=== PATIENT | female | born 1945 | race Caucasian/White ===

== ENCOUNTER 2017-06-19 21:03 | Inpatient (IN) | END 2017-06-23 17:37 | disposition home or self-care (01) | DRG 872 ==

== ENCOUNTER 2017-10-08 05:36 | Emergency (ER) | END 2017-10-08 06:43 | disposition home or self-care (01) ==

== ENCOUNTER 2018-02-16 14:14 | Inpatient (IN) | END 2018-02-20 17:51 | disposition home or self-care (01) | DRG 291 ==

== ENCOUNTER 2018-09-30 13:21 | Observation (INO) | payer MEDICARE, OTHER ==
[~2018-09-30] VITALS: Ht 157.5 cm; Wt 77.7 kg
[~2018-09-30 13:21] MED LIST: AMLO-147 PO; ATOR40TA68 PO; BENA40TA56 PO; CLOT30CR24 TOP; DOCU-144 PO; FER325 PO; FOLI-49 PO; FURO20TA3 PO; HYDR25TA6 PO; LABE100T39 PO; LEVO25TA6 PO; MET25 PO; METF500T24 PO; PANT40TA3 PO; SIMV40TA2 PO; TYL500 PO
--- NOTE | 2018-09-30 17:43 | ERD ---
ER Documentation Chief Complaint Chief Complaint sob and anemia x 3 days HPI The patient is a 73-year-old female, presenting to the ER because of dyspnea on exertion for the last week, worse today, complains of orthopnea, paroxysmal nocturnal dyspnea, bilateral leg edema, had similar symptoms previously, denies chest pain, abdominal pain, vomiting, dysuria, diarrhea. She does not smoke nor drink Past medical history: Hypertension, dyslipidemia, hypothyroidism, diabetes mellitus, history of CHF Past surgical history: Hysterectomy ROS All systems reviewed and are negative except as per history of present illness. Medications Home Meds Reported Medications Ascorbic Acid* (Vitamin C* Chew) 125 Mg Tab.chew, 250 MG PO BID, TAB.CHEW 09/30/18 Methotrexate* (Methotrexate*) 2.5 Mg Tab, 15 MG PO Q SUN, TAB 09/30/18 Folic Acid* (Folic Acid*) 1 Mg Tablet, 1 MG PO DAILY, TAB 09/30/18 Ferrous Sulfate* (Ferrous Sulfate*) 325 Mg Tabec, 325 MG PO DAILY, TAB 09/30/18 Carvedilol* (Carvedilol*) 6.25 Mg Tablet, 6.25 MG PO BID, #60 TAB 09/30/18 Hydralazine Hcl* (Hydralazine Hcl*) 25 Mg Tab, 25 MG PO BID, #60 TAB 09/30/18 Atorvastatin Calcium* (Atorvastatin Calcium*) 20 Mg Tablet, 20 MG PO QHS, #30 TAB 09/30/18 Amlodipine Besylate* (Amlodipine Besylate*) 10 Mg Tablet, 10 MG PO DAILY, #30 TAB 09/30/18 Levothyroxine Sodium* (Levothyroxine Sodium*) 25 Mcg Tablet, 25 MCG PO BEFORE BREAKFAST, #30 TAB 09/30/18 Cyanocobalamin (Vitamin B-12) (Vitamin B-12) 1,000 Mcg Capsule, 1000 MCG PO DAILY, CAP 09/30/18 Discontinued Reported Medications Labetalol Hcl (Labetalol Hcl) 100 Mg Tab, 100 MG PO BID, TAB 02/16/18 Atorvastatin* (Atorvastatin*) 40 Mg Tablet, 20 MG PO QHS, #30 TAB 02/16/18 Acetaminophen* (Tylenol*) 500 Mg Tab, 500 MG PO NEEDED PRN for MILD PAIN LEVEL 1-3, TAB 06/19/17 Levothyroxine Sodium* (Levothyroxine Sodium*) 25 Mcg Tablet, 25 MCG PO BEFORE BREAKFAST, #30 TAB 06/19/17 Folic Acid* (Folic Acid*) 1 Mg Tablet, 1 MG PO DAILY, TAB 06/19/17 Simvastatin* (Zocor*) 40 Mg Tablet, 40 MG PO QHS, #30 TAB 06/19/17 Methotrexate* (Methotrexate*) 2.5 Mg Tab, 2.5 MG PO Q7D, TAB TAKE 7TAB-Q7D FOR 1 MONTH,THEN 6TAB-Q7D AND IF JOINT PAIN DONT GO BACK TO TAKE 8TAB-Q7D 06/19/17 Metformin Hcl* (Metformin Hcl*) 500 Mg Tablet, 500 MG PO WITH BREAKFAST DINNE, #60 TAB 06/19/17 Hydrochlorothiazide* (Hydrochlorothiazide*) 25 Mg Tab, 25 MG PO DAILY, #30 TAB 06/19/17 Discontinued Scripts Furosemide* (Furosemide*) 20 Mg Tablet, 20 MG PO Q48H, #60 TAB Prov:POLINA DICKINSON MD 02/20/18 Ferrous Sulfate* (Ferrous Sulfate*) 325 Mg Tabec, 325 MG PO DAILY, #90 TAB 3 Refills Prov:POLINA DICKINSON MD 02/20/18 Clotrimazole* (Clotrimazole* AF) 1% - 30 Gm Cream.gm., 1 APPLIC TOP BID for 7 Days, TUB Prov:TOYA SHAH PA-C 10/08/17 Docusate Sodium* (Colace*) 100 Mg Capsule, 100 MG PO BID PRN for CONSTIPATION, #60 CAP Prov:RUPERTO TUCKER 06/23/17 Pantoprazole* (Protonix*) 40 Mg Tablet.dr, 40 MG PO DAILY, #30 TAB Prov:REGRUPERTO RANDHAWA 06/23/17 Benazepril Hcl* (Benazepril Hcl*) 40 Mg Tablet, 40 MG PO DAILY, #30 TAB Prov:REGRUPERTO RANDHAWA 06/23/17 Amlodipine Besylate* (Amlodipine Besylate*) 10 Mg Tablet, 10 MG PO DAILY, #30 TAB Prov:RUPERTO TUCKER 06/23/17 Allergies Allergies: Coded Allergies: No Known Allergy (Unverified , 09/30/18) PMhx/Soc History of Surgery: Yes (hysterectomy 30+ years ago) Anesthesia Reaction: No Hx Neurological Disorder: No Hx Respiratory Disorders: No Hx Cardiac Disorders: Yes (HTN) Hx Psychiatric Problems: No Hx Miscellaneous Medical Probl: No Hx Alcohol Use: No Hx Substance Use: No Hx Tobacco Use: No Physical Exam Vitals Vital Signs Date Temp Pulse Resp B/P (MAP) Pulse Ox O2 O2 Flow FiO2 Time Delivery Rate 09/30/18 68 24 144/77 94 Nasal 6.0 18:31 (99) Cannula 09/30/18 Nasal 4 17:58 Cannula 09/30/18 Nasal 4.0 17:58 Cannula 09/30/18 98.5 78 20 172/71 97 13:28 (104) Physical Exam Const: No acute distress. Head: Atraumatic. Eyes: Normal Conjunctiva. ENT: Normal External Ears, Nose and Mouth. Neck: Full range of motion. No meningismus. Resp: Bibasilar crackle Cardio: Regular rate and rhythm. Abd: Soft, non distended, normal bowel sounds, non tender. Skin: No petechiae or rashes. Back: No midline or flank tenderness. Ext: Bilateral leg mild edema, no calf tenderness Neur: Awake and alert. No focal deficit Psych: Normal Mood and Affect. Result Diagram: 10/01/18 0638 10/01/18 0638 Results 24 hrs Laboratory Tests Test 09/30/18 18:23 White Blood Count 10.4 10^3/ul Red Blood Count 2.51 10^6/ul Hemoglobin 7.3 g/dl Hematocrit 24.3 % Mean Corpuscular Volume 96.8 fl Mean Corpuscular Hemoglobin 29.1 pg Mean Corpuscular Hemoglobin Concent 30.0 g/dl Red Cell Distribution Width 16.2 % Platelet Count 255 10^3/UL Mean Platelet Volume 9.8 fl Immature Granulocytes % 0.600 % Neutrophils % 66.1 % Lymphocytes % 22.7 % Monocytes % 6.6 % Eosinophils % 3.7 % Basophils % 0.3 % Nucleated Red Blood Cells % 0.2 /100WBC Immature Granulocytes # 0.060 10^3/ul Neutrophils # 6.9 10^3/ul Lymphocytes # 2.4 10^3/ul Monocytes # 0.7 10^3/ul Eosinophils # 0.4 10^3/ul Basophils # 0.0 10^3/ul Nucleated Red Blood Cells # 0.0 10^3/ul Prothrombin Time 13.2 Sec Prothrombin Time Ratio 1.0 INR International Normalized Ratio 0.99 Activated Partial Thromboplast Time 22.8 Sec D-Dimer 1117.65 ng/ml D-Dimer Comment Sodium Level 140 mmol/L Potassium Level 5.0 mmol/L Chloride Level 108 mmol/L Carbon Dioxide Level 23 mmol/L Anion Gap 9 Blood Urea Nitrogen 24 mg/dl Creatinine 1.10 mg/dl Est Glomerular Filtrat Rate mL/min mL/min Glucose Level 106 mg/dl Calcium Level 9.0 mg/dl Troponin I < 0.012 ng/ml B-Type Natriuretic Peptide 606 PG/ML Current Medications Medications Dose Sig/Kimmy Start Time Status Last (Trade) Ordered Route PRN Stop Time Admin Dose Reason Admin Furosemide 40 mg ONCE ONCE 09/30/18 DC 09/30/18 (Lasix) IV 18:30 18:27 09/30/18 18:31 Procedures/[place] [id number] Radiology Main Line: [phone] DIAGNOSTIC IMAGING REPORT Patient: CESAR DOWD : 1945 Age: 73 Sex: F MR #: [id number] DOS: 09/30/18 1747 Ordering MD: SIOBHAN RAZO MD Location: E/R Room/Bed: PROCEDURE: XR chest. CLINICAL INDICATION: Shortness of breath TECHNIQUE: Portable AP view of the chest was obtained. COMPARISON: 02/16/2018 FINDINGS: Heart remains moderate to markedly enlarged. Aorta is atherosclerotic.. There is no pneumothorax. There are trace pleural effusions. There are bilateral mild to moderate interstitial infiltrates. Right apical pleural parenchymal scarring is unchanged. IMPRESSION: 1. Moderate to marked cardiomegaly and mild to moderate pulmonary edema. 2. Trace pleural effusions. RPTAT:HAJM Physician Chano Date Time Electronically viewed and signed by Physician Chano on 09/30/2018 18:33 RM/ CC: SIOBHAN ARZO MD [phone] EKG: Read by emergency physician Rate/Rhythm: Normal Sinus Rhythm 68 beats/min QRS, ST, T-waves: No ST elevation, no T inversion, RSR' in V1 Impression: Abnormal EKG MEDICAL MAKING DECISION: The patient is a 73-year-old female, presenting with acute CHF, was treated with Lasix 40 mg IV with good response The differential diagnoses considered include but are not limited to asthma, COPD, pneumonia, pulmonary embolus, pleural effusion, congestive heart failure GI bleed. Departure Diagnosis: Primary Impression: CHF (congestive heart failure) Additional Impression: Anemia Condition: Stable Comments I discussed the findings with the patient. I discussed the patient with Dr Satnizo , who was made aware of the lab, the treatment, the patient condition. The patient is admitted to [facility] Obs at 8:10p Disclaimer: Inadvertent spelling and grammatical errors are likely due to EHR/dictation software use and do not reflect on the overall quality of patient care. Also, please note that the electronic time recorded on this note does not necessarily reflect the actual time of the patient encounter. SIOBHAN RAZO MD September 30, 2018 17:43
[2018-09-30] MEDS ORDERED: CYAN-23 PO (18:28)
[2018-09-30] MEDS ORDERED: LEVO25TA6 PO (18:28)
[2018-09-30] MEDS ORDERED: ATOR20TA38 PO (18:29)
[2018-09-30] MEDS ORDERED: AMLO-147 PO (18:29)
[2018-09-30] MEDS ORDERED: HYDR-3671 PO (18:30)
[2018-09-30] MEDS ORDERED: CARV6.2579 PO (18:30)
[2018-09-30] MEDS ORDERED: FER325 PO (18:30)
[2018-09-30] MEDS ORDERED: FUROSEMIDE 40 MG INJ IV ONE (18:30)
[2018-09-30] MEDS ORDERED: FOLI-49 PO (18:31)
[2018-09-30] MEDS ORDERED: MET25 PO (18:32)
[2018-09-30] MEDS ORDERED: ASCO125T PO (18:33)
[2018-09-30] MEDS ORDERED: ACETAMINOPHEN 325 MG TAB PO PRN (20:30)
[2018-09-30] MEDS ORDERED: ONDANSETRON 4 MG INJ IV PRN (20:30)
[2018-09-30] MEDS ORDERED: DOCUSATE SODIUM 100 MG CAP PO PRN (20:30)
[2018-09-30] MEDS ORDERED: NACL 0.9% 3 ML SYG IV SCH (20:30)
[2018-09-30] MEDS ORDERED: BISACODYL (EC) 5 MG TAB PO PRN (20:30)
--- NOTE | 2018-09-30 22:00 | HP ---
Date/Time of Note Date/Time of Note DATE: 09/30/18 TIME: 21:48 Assessment/Plan VTE Prophylaxis SCD applied (from Nsg): Yes Pharmacological prophylaxis: NA/contraindicated Pharm contraindication: low risk/ambulating Lines/Catheters IV Catheter Type (from Nrsg): Saline Lock Assessment/Plan Hospital Course This is a 73-year female being admitted to the telemetry floor for: #1 dyspnea on exertion: Suspect diastolic CHF exacerbation. However given patient's history of recent travel we will also work-up for pulmonary embolism. Will check a stat d-dimer and bilateral venous Doppler to rule out DVT, proceed to CTA of the chest any of those are positive. She has been given Lasix 40 mg IV in the emergency department. I will continue Lasix 40 mg IV twice daily for 1 more day and then reassess. Put the patient on fluid restriction. Resume carvedilol. Consult cardiology. #2 suspect acute diastolic CHF exacerbation: Previous echocardiogram showed stage II diastolic dysfunction 1 year ago with a normal ejection fraction. Will repeat an echocardiogram to assess heart function and structure. IV diuresis. Continue beta-roxann and statin. #3 hypertension: Continue patient's home blood pressure medications #4 rheumatoid arthritis: Patient takes methotrexate every Sunday. Will resume if she has a prolonged hospital stay #5 hypothyroidism: We will check a TSH, resume levothyroxine #6 diabetes mellitus: Currently not on any medications, will check hemoglobin A1c. Her previous hemoglobin A1c 1 year ago showed good control. #7 paroxysmal A. fib: Patient currently in normal sinus rhythm #8 hyperlipidemia: Continue statin #9 anemia of chronic disease: Hemoglobin is 7.3. No signs of any active bleeding. This is likely in the setting of patient's rheumatoid arthritis. Will check iron stores. Continue ferrous sulfate. Will check stool occult blood. #10 DVT and GI prophylaxis: SCDs, no GI prophylaxis indicated Further treatment strategy will be implemented as per the clinical course Result Diagram: 09/30/18182209/30/183 Results 24hrs Laboratory Tests Test 09/30/18 18:23 White Blood Count 10.4 # Red Blood Count 2.51 L Hemoglobin 7.3 L Hematocrit 24.3 L Mean Corpuscular Volume 96.8 Mean Corpuscular Hemoglobin 29.1 Mean Corpuscular Hemoglobin Concent 30.0 L Red Cell Distribution Width 16.2 H Platelet Count 255 Mean Platelet Volume 9.8 Immature Granulocytes % 0.600 H Neutrophils % 66.1 Lymphocytes % 22.7 Monocytes % 6.6 Eosinophils % 3.7 Basophils % 0.3 Nucleated Red Blood Cells % 0.2 H Immature Granulocytes # 0.060 H Neutrophils # 6.9 Lymphocytes # 2.4 Monocytes # 0.7 Eosinophils # 0.4 Basophils # 0.0 Nucleated Red Blood Cells # 0.0 Prothrombin Time 13.2 Prothrombin Time Ratio 1.0 INR International Normalized Ratio 0.99 Activated Partial Thromboplast Time 22.8 L D-Dimer 1117.65 H D-Dimer Comment Sodium Level 140 Potassium Level 5.0 Chloride Level 108 Carbon Dioxide Level 23 Anion Gap 9 Blood Urea Nitrogen 24 H Creatinine 1.10 H Est Glomerular Filtrat Rate mL/min Glucose Level 106 Calcium Level 9.0 Troponin I < 0.012 B-Type Natriuretic Peptide 606 H HPI/ROS Admit Date/Time Admit Date/Time Hx of Present Illness Chief complaint: Dyspnea x4 days, swelling lower extremities This is a 73-year-old female with a past medical history of hypertension, diabetes mellitus, rheumatoid arthritis paroxysmal A. fib, hypothyroidism, and diastolic CHF, hyperlipidemia, chronic anemia who presented with symptoms of dyspnea on exertion x4 days. Family was present at the bedside. Patient reports that over the last 4 days or so she has been experiencing shortness of breath on exertion. She has also reported that she has noticed swelling of her bilateral lower extremities. She did travel to [place] over the weekend and just recently returned. She does report that the symptoms started prior to going to [facility] but got worse there. She denies any chest pain. She does have a history of chronic anemia for which she is on ferrous sulfate. Her primary doctor attributes her anemia to her rheumatoid arthritis. She denies any bleeding. Allergies: NKDA Medications: Carvedilol 6.25 twice daily Methotrexate 15 mg p.o. q. Sunday Amlodipine 10 mg p.o. daily Vitamin C 2050 mg p.o. twice daily Atorvastatin 20 mg nightly Vitamin B12 1000 mcg p.o. daily Ferrous sulfate 325 mg p.o. daily Folic acid 1 mg p.o. daily Hydralazine 25 mg p.o. twice daily Levothyroxine 25 mg p.o. before breakfast daily ROS Const: As per HPI Eyes : No pain discharge or redness or change in visual acuity ENT: No pain, sore throat, congestion, congestion, dysphagia or discharge Respiratory: As per HPI Cardiovascular: As per HPI GI : no change in appetite, abdominal pain, nausea, vomiting, diarrhea, constipation, or change in the color his stool Genitourinary: No dysuria, hematuria, flank pain , discharge or CVA tenderness Musculoskeletal: No joint pain, back pain, neck pain, restricted range of motion in neck or joints Skin: No rash, bruising or hives Neuro: No headache, dizziness, syncope, seizure, focal weakness Endocrine: No polyuria, polydipsia, temperature intolerance Psych: No hallucination, depression, anxiety or suicidal ideation PMH/Family/Social Past Medical History Hypertension, diabetes mellitus, rheumatoid arthritis, hypothyroidism, paroxysmal A. fib, hyperlipidemia, chronic anemia, diastolic CHF Medications Current Medications IV Flush (NS 3 ml) 3 ml PER PROTOCOL IV ; Start 09/30/18 at 20:30 Ondansetron HCl (Zofran Inj) 4 mg Q6H PRN IV NAUSEA/VOMITING; Start 09/30/18 at 20:30 Acetaminophen (Tylenol Tab) 650 mg Q6H PRN PO .PAIN 1-3 OR TEMP; Start 09/30/18 at 20:30 Docusate Sodium (Colace) 100 mg Q12H PRN PO .CONSTIPATION; Start 09/30/18 at 20:30 Bisacodyl (Dulcolax) 5 mg DAILY PRN PO .CONSTIPATION; Start 09/30/18 at 20:30 Amlodipine Besylate (Norvasc) 10 mg DAILY PO ; Start 10/01/18 at 09:00 Atorvastatin Calcium (Lipitor) 20 mg QHS PO ; Start 09/30/18 at 21:00 Ferrous Sulfate (Ferrous Sulfate (Ec)) 325 mg DAILY PO ; Start 10/01/18 at 09:00 Folic Acid (Folic Acid) 1 mg DAILY PO ; Start 10/01/18 at 09:00 Hydralazine HCl (Apresoline) 25 mg BID PO ; Start 09/30/18 at 21:00 Levothyroxine Sodium (Synthroid) 25 mcg BEFORE BREAKFAST PO ; Start 10/01/18 at 07:00 Ascorbic Acid (Vitamin C) 250 mg BID PO ; Start 09/30/18 at 21:00 Cyanocobalamin (Vitamin B12) 1,000 mcg DAILY PO ; Start 10/01/18 at 09:00 Furosemide (Lasix) 40 mg BID DIURETICS IV ; Start 10/01/18 at 06:00; Stop 10/02/18 at 05:59 Coded Allergies: No Known Allergy (Unverified , 09/30/18) Past Surgical History Hysterectomy Past Surgical Hx: other Family History Significant Family History: no pertinent family hx Social History Alcohol Use: none Smoking Status: Never smoker Drug Use: none Exam/Review of Systems Vital Signs Vitals Vital Signs Date Temp Pulse Resp B/P (MAP) Pulse Ox O2 O2 Flow FiO2 Time Delivery Rate 09/30/18 68 24 144/77 94 Nasal 6.0 18:31 (99) Cannula 09/30/18 98.5 13:28 Exam Exam General: Patient is a pleasant female currently sitting upright in bed in no acute respiratory distress HEENT: Atraumatic, normocephalic. The pupils are equal, round and reactive. Extraocular motor are intact Neck: Supple with full range of motion. No rigidity or meningismus Chest: Nontender Lungs: Crackles/rales bilaterally, nonlabored breathing Heart: Normal S1-S2, Regular rhythm and rate. Abdomen: Soft , nontender, nondistended , bowel sounds are present. No guarding no rebound tenderness , No masses or organomegaly. No costovertebral temporal angle mass Extremities: Bilateral 2+ pitting edema of the lower extremities Neurologic: Normal mental status, speech normal, cranial nerves II through XII are intact, motor and sensory are intact, no focal weakness Additional Comments EKG: Normal sinus rhythm at approximately 68 bpm, no ST or T wave of normalities concerning for acute ischemia MIGUEL HSU September 30, 2018 22:00
[2018-09-30] MEDS ORDERED: IODIXANOL LOCM 100 ML BTL ONE ×2 (22:27→22:45)
[2018-09-30] MEDS ORDERED: SOD CHLORIDE 0.9% 100 ML ONE ×2 (22:27→22:45)
[2018-09-30] MEDS: ATORVASTATIN 20 MG TAB PO SCH (23:59)
[2018-10-01] VITALS (12 sets, daily range): BP systolic 140–183; BP diastolic 61–77; PULSE 61–76; RESP 19–20; Ht 157.5 cm; Wt 77.7 kg
[2018-10-01] MEDS ORDERED: ENOXAPARIN 80 MG/0.8 ML SYG SC SCH
[2018-10-01] MEDS: FUROSEMIDE 40 MG INJ IV SCH ×2 (06:07→17:16)
[2018-10-01] MEDS: LEVOTHYROXINE 25 MCG TAB PO SCH (06:07)
[2018-10-01] MEDS: FERROUS SULFATE (EC) 325 MG TAB PO SCH (09:20)
[2018-10-01] MEDS: ASCORBIC ACID 250 MG TAB PO SCH ×3 (09:25→20:09)
[2018-10-01] MEDS: AMLODIPINE 10 MG TAB PO SCH (09:25)
[2018-10-01] MEDS: FOLIC ACID 1 MG TAB PO SCH (09:25)
[2018-10-01] MEDS: CYANOCOBALAMIN 500 MCG TAB PO SCH (09:25)
--- NOTE | 2018-10-01 11:00 | CONS ---
Consultation Date/Type/Reason Admit Date/Time Type of Consult Cardiology Date/Time of Note DATE: 10/01/18 TIME: 10:59 Hx of Present Illness 73 yo with DD, parox a. fib (?) now not anti-coag -here with CHF - in sinus, responded to diuresis, rom - con't CHF Rx full note dictated # [id number] Past Medical History Home Meds Reported Medications Ascorbic Acid* (Vitamin C* Chew) 125 Mg Tab.chew, 250 MG PO BID, TAB.CHEW 09/30/18 Methotrexate* (Methotrexate*) 2.5 Mg Tab, 15 MG PO Q SUN, TAB 09/30/18 Folic Acid* (Folic Acid*) 1 Mg Tablet, 1 MG PO DAILY, TAB 09/30/18 Ferrous Sulfate* (Ferrous Sulfate*) 325 Mg Tabec, 325 MG PO DAILY, TAB 09/30/18 Carvedilol* (Carvedilol*) 6.25 Mg Tablet, 6.25 MG PO BID, #60 TAB 09/30/18 Hydralazine Hcl* (Hydralazine Hcl*) 25 Mg Tab, 25 MG PO BID, #60 TAB 09/30/18 Atorvastatin Calcium* (Atorvastatin Calcium*) 20 Mg Tablet, 20 MG PO QHS, #30 TAB 09/30/18 Amlodipine Besylate* (Amlodipine Besylate*) 10 Mg Tablet, 10 MG PO DAILY, #30 TAB 09/30/18 Levothyroxine Sodium* (Levothyroxine Sodium*) 25 Mcg Tablet, 25 MCG PO BEFORE BREAKFAST, #30 TAB 09/30/18 Cyanocobalamin (Vitamin B-12) (Vitamin B-12) 1,000 Mcg Capsule, 1000 MCG PO DAILY, CAP 09/30/18 Discontinued Reported Medications Labetalol Hcl (Labetalol Hcl) 100 Mg Tab, 100 MG PO BID, TAB 02/16/18 Atorvastatin* (Atorvastatin*) 40 Mg Tablet, 20 MG PO QHS, #30 TAB 02/16/18 Acetaminophen* (Tylenol*) 500 Mg Tab, 500 MG PO NEEDED PRN for MILD PAIN LEVEL 1-3, TAB 06/19/17 Levothyroxine Sodium* (Levothyroxine Sodium*) 25 Mcg Tablet, 25 MCG PO BEFORE BREAKFAST, #30 TAB 06/19/17 Folic Acid* (Folic Acid*) 1 Mg Tablet, 1 MG PO DAILY, TAB 06/19/17 Simvastatin* (Zocor*) 40 Mg Tablet, 40 MG PO QHS, #30 TAB 06/19/17 Methotrexate* (Methotrexate*) 2.5 Mg Tab, 2.5 MG PO Q7D, TAB TAKE 7TAB-Q7D FOR 1 MONTH,THEN 6TAB-Q7D AND IF JOINT PAIN DONT GO BACK TO TAKE 8TAB-Q7D 06/19/17 Metformin Hcl* (Metformin Hcl*) 500 Mg Tablet, 500 MG PO WITH BREAKFAST DINNE, #60 TAB 06/19/17 Hydrochlorothiazide* (Hydrochlorothiazide*) 25 Mg Tab, 25 MG PO DAILY, #30 TAB 06/19/17 Discontinued Scripts Furosemide* (Furosemide*) 20 Mg Tablet, 20 MG PO Q48H, #60 TAB Prov:POLINA DICKINSON MD 02/20/18 Ferrous Sulfate* (Ferrous Sulfate*) 325 Mg Tabec, 325 MG PO DAILY, #90 TAB 3 Refills Prov:POLINA DICKINSON MD 02/20/18 Clotrimazole* (Clotrimazole* AF) 1% - 30 Gm Cream.gm., 1 APPLIC TOP BID for 7 Days, TUB Prov:TOYA SHAH PA-C 10/08/17 Docusate Sodium* (Colace*) 100 Mg Capsule, 100 MG PO BID PRN for CONSTIPATION, #60 CAP Prov:RUPERTO TUCKER 06/23/17 Pantoprazole* (Protonix*) 40 Mg Tablet.dr, 40 MG PO DAILY, #30 TAB Prov:RUPERTO TUCKER 06/23/17 Benazepril Hcl* (Benazepril Hcl*) 40 Mg Tablet, 40 MG PO DAILY, #30 TAB Prov:RUPERTO TUCKER 06/23/17 Amlodipine Besylate* (Amlodipine Besylate*) 10 Mg Tablet, 10 MG PO DAILY, #30 TAB Prov:RUPERTO TUCKER 06/23/17 Medications Current Medications IV Flush (NS 3 ml) 3 ml PER PROTOCOL IV ; Start 09/30/18 at 20:30 Ondansetron HCl (Zofran Inj) 4 mg Q6H PRN IV NAUSEA/VOMITING; Start 09/30/18 at 20:30 Acetaminophen (Tylenol Tab) 650 mg Q6H PRN PO .PAIN 1-3 OR TEMP; Start 09/30/18 at 20:30 Docusate Sodium (Colace) 100 mg Q12H PRN PO .CONSTIPATION; Start 09/30/18 at 20:30 Bisacodyl (Dulcolax) 5 mg DAILY PRN PO .CONSTIPATION; Start 09/30/18 at 20:30 Amlodipine Besylate (Norvasc) 10 mg DAILY PO Last administered on 10/01/18 09:25; Admin Dose 10 MG; Start 10/01/18 at 09:00 Atorvastatin Calcium (Lipitor) 20 mg QHS PO Last administered on 09/30/18 23:59; Admin Dose 20 MG; Start 09/30/18 at 21:00 Ferrous Sulfate (Ferrous Sulfate (Ec)) 325 mg DAILY PO Last administered on 10/01/18 09:20; Admin Dose 325 MG; Start 10/01/18 at 09:00 Folic Acid (Folic Acid) 1 mg DAILY PO Last administered on 10/01/18 09:25; Admin Dose 1 MG; Start 10/01/18 at 09:00 Hydralazine HCl (Apresoline) 25 mg BID PO Last administered on 10/01/18 09:21; Admin Dose 25 MG; Start 09/30/18 at 21:00 Levothyroxine Sodium (Synthroid) 25 mcg BEFORE BREAKFAST PO Last administered on 10/01/18 06:07; Admin Dose 25 MCG; Start 10/01/18 at 07:00 Ascorbic Acid (Vitamin C) 250 mg BID PO Last administered on 10/01/18 09:25; Admin Dose 250 MG; Start 09/30/18 at 21:00 Cyanocobalamin (Vitamin B12) 1,000 mcg DAILY PO Last administered on 10/01/18 09:25; Admin Dose 1,000 MCG; Start 10/01/18 at 09:00 Furosemide (Lasix) 40 mg BID DIURETICS IV Last administered on 10/01/18 06:07; Admin Dose 40 MG; Start 10/01/18 at 06:00; Stop 10/02/18 at 05:59 Allergies: Coded Allergies: No Known Allergy (Unverified , 09/30/18) Past Surgical History Past Surgical Hx: other Social History Alcohol Use: none Smoking Status: Never smoker Drug Use: none Exam/Review of Systems Vital Signs Vitals Vital Signs Date Temp Pulse Resp B/P (MAP) Pulse Ox O2 O2 Flow FiO2 Time Delivery Rate 10/01/18 72 08:01 10/01/18 98.3 20 153/61 95 Room Air 07:32 (91) 10/01/18 4.0 02:59 Intake and Output 09/30/18 09/30/18 10/01/18 1515:00 23:00 07:00 IntakeIntake Total 240 ml BalanceBalance 240 ml Labs Result Diagram: 10/01/18 0638 10/01/18 0638 Results 24hrs Laboratory Tests Test 09/30/18 18:23 09/30/18 23:29 10/01/18 06:38 White Blood Count 10.4 # 9.4 Red Blood Count 2.51 L 2.67 L Hemoglobin 7.3 L 7.5 L Hematocrit 24.3 L 25.8 L Mean Corpuscular Volume 96.8 96.6 Mean Corpuscular Hemoglobin 29.1 28.1 L Mean Corpuscular Hemoglobin Concent 30.0 L 29.1 L Red Cell Distribution Width 16.2 H 16.2 H Platelet Count 255 256 Mean Platelet Volume 9.8 9.4 Immature Granulocytes % 0.600 H 0.400 Neutrophils % 66.1 66.1 Lymphocytes % 22.7 21.7 Monocytes % 6.6 8.1 Eosinophils % 3.7 3.1 Basophils % 0.3 0.6 Nucleated Red Blood Cells % 0.2 H 0.3 H Immature Granulocytes # 0.060 H 0.040 H Neutrophils # 6.9 6.2 Lymphocytes # 2.4 2.0 Monocytes # 0.7 0.8 Eosinophils # 0.4 0.3 Basophils # 0.0 0.1 Nucleated Red Blood Cells # 0.0 0.0 Prothrombin Time 13.2 Prothrombin Time Ratio 1.0 INR International Normalized Ratio 0.99 Activated Partial Thromboplast Time 22.8 L D-Dimer 1117.65 H D-Dimer Comment Sodium Level 140 141 Potassium Level 5.0 4.1 Chloride Level 108 106 Carbon Dioxide Level 23 27 Anion Gap 9 8 Blood Urea Nitrogen 24 H 23 H Creatinine 1.10 H 1.05 H Est Glomerular Filtrat Rate mL/min Glucose Level 106 101 Calcium Level 9.0 9.0 Troponin I < 0.012 < 0.012 < 0.012 B-Type Natriuretic Peptide 606 H Creatine Kinase 115 99 Creatine Kinase Index 2.2 2.2 Creatinine Kinase MB (Mass) 2.48 H 2.19 Hemoglobin A1c 5.2 Magnesium Level 2.1 Iron Level 44 Total Iron Binding Capacity 366 Percent Iron Saturation 12 L Ferritin 19.5 Total Bilirubin 0.5 Direct Bilirubin 0.00 Indirect Bilirubin 0.5 Aspartate Amino Transf (AST/SGOT) 28 Alanine Aminotransferase (ALT/SGPT) 14 Alkaline Phosphatase 125 H Total Protein 7.0 Albumin 3.7 Globulin 3.30 H Albumin/Globulin Ratio 1.12 Triglycerides Level 86 Cholesterol Level 126 LDL Cholesterol, Calculated 47 HDL Cholesterol 62 Cholesterol/HDL Ratio 2.0 Thyroid Stimulating Hormone (TSH) 6.770 H Medications Medications Current Medications IV Flush (NS 3 ml) 3 ml PER PROTOCOL IV ; Start 09/30/18 at 20:30 Ondansetron HCl (Zofran Inj) 4 mg Q6H PRN IV NAUSEA/VOMITING; Start 09/30/18 at 20:30 Acetaminophen (Tylenol Tab) 650 mg Q6H PRN PO .PAIN 1-3 OR TEMP; Start 09/30/18 at 20:30 Docusate Sodium (Colace) 100 mg Q12H PRN PO .CONSTIPATION; Start 09/30/18 at 20:30 Bisacodyl (Dulcolax) 5 mg DAILY PRN PO .CONSTIPATION; Start 09/30/18 at 20:30 Amlodipine Besylate (Norvasc) 10 mg DAILY PO Last administered on 10/01/18 09:25; Admin Dose 10 MG; Start 10/01/18 at 09:00 Atorvastatin Calcium (Lipitor) 20 mg QHS PO Last administered on 09/30/18at 23:59; Admin Dose 20 MG; Start 09/30/18 at 21:00 Ferrous Sulfate (Ferrous Sulfate (Ec)) 325 mg DAILY PO Last administered on 10/01/18 09:20; Admin Dose 325 MG; Start 10/01/18 at 09:00 Folic Acid (Folic Acid) 1 mg DAILY PO Last administered on 10/01/18 09:25; Admin Dose 1 MG; Start 10/01/18 at 09:00 Hydralazine HCl (Apresoline) 25 mg BID PO Last administered on 10/01/18 09:21; Admin Dose 25 MG; Start 09/30/18 at 21:00 Levothyroxine Sodium (Synthroid) 25 mcg BEFORE BREAKFAST PO Last administered on 10/01/18 06:07; Admin Dose 25 MCG; Start 10/01/18 at 07:00 Ascorbic Acid (Vitamin C) 250 mg BID PO Last administered on 10/01/18at 09:25; Admin Dose 250 MG; Start 09/30/18 at 21:00 Cyanocobalamin (Vitamin B12) 1,000 mcg DAILY PO Last administered on 10/01/18 09:25; Admin Dose 1,000 MCG; Start 10/01/18 at 09:00 Furosemide (Lasix) 40 mg BID DIURETICS IV Last administered on 10/01/18 06:07; Admin Dose 40 MG; Start 10/01/18 at 06:00; Stop 10/02/18 at 05:59 MIKE FERNANDEZ MD October 01, 2018 11:00
--- NOTE | 2018-10-01 11:08 | RADRPT ---
Echocardiogram Report Patient Name: CESAR DOWDPatient ID: [id number] : 1945 (73y 1m)Study Date: 10/01/2018 1:34:16 PM Gender: FAccession #: [id number] Tech: Norma Meadows ESTIVEN Location: 505 Ref.Physician: MIGUEL HSU Height(Cm): BSA: Weight(Kg): Quality: AdequateOrder Physician: MIGUEL HSU Account #: Procedures: Echocardiographic Report: Transthoracic echocardiogram with complete 2D, M-Mode, and doppler examination. Indications: Congestive Heart Failure. Measurements: 2D/M Mode Doppler Measurement Value Normal Range Measurement Value Normal Range LVIDd 2D 5.0 [ 3.8 - 5.2 ] cm AV Peak Luis 1.7 [ 100.0 - 170.0 ] cm/sec LVIDs 2D 3.2 [ 2.2 - 3.5 ] cm AV Peak PG 12.0 [ 2.0 - 9.0 ] mmHg LVPWd 2D 1.0 [ 0.6 - 0.9 ] cm LVOT Peak Luis 1.1 [ 70.0 - 110.0 ] cm/sec IVSd 2D 1.0 [ 0.6 - 0.9 ] cm LVOT Peak PG 5.0 [ 2.0 - 6.0 ] mmHg IVS/LVPW 2D 1.0 ratio MV E Peak Luis 1.2 [ 60.0 - 130.0 ] cm/sec AoR Diam 2D 2.5 [ 2.3 - 3.1 ] cm MV A Peak Luis 1.4 [ 100.0 - 120.0 ] cm/sec LA/Ao 2D 1 ratio MV E/A 0.9 [ 0.8 - 1.5 ] ratio LA Dimen 2D 3.6 [ 2.7 - 3.8 ] cm MV Decel Time 176 [ 104 - 258 ] msec Lat E` Luis 0.1 [ 10.0 - 15.0 ] cm/sec MV E/A 0.9 [ 0.8 - 1.5 ] ratio TR Peak Luis 2.7 [ 100.0 - 280.0 ] cm/sec TR Peak PG 30.0 mmHg RVSP 38.0 [ 10.0 - 36.0 ] mmHg RA Pressure 8.0 mmHg Findings: Left Ventricle: Normal left ventricular systolic function. Normal left ventricular cavity size. Normal left ventricular wall thickness. Ejection fraction is visually estimated at 55-60 %. Tissue Doppler/Mitral Doppler indices are consistent with impaired relaxation (Stage I diastolic dysfunction). Right Ventricle: Normal right ventricular size. Normal right ventricular systolic function. Left Atrium: The left atrium is normal in size. Right Atrium: The right atrium is normal in size. Mitral Valve: Normal appearance and function of the mitral valve with trace physiologic regurgitation. Aortic Valve: No significant aortic stenosis or insufficiency. Aortic cusps appear mildly calcified. Tricuspid Valve: Normal appearance of the tricuspid valve. Estimated peak PA systolic pressure 38 mmHg. There is mild tricuspid regurgitation. Pulmonic Valve: Pulmonic valve not well visualized. Pericardium: Normal pericardium with no significant pericardial effusion. Aorta: Normal aortic root. IVC: Dilated IVC with respiratory collapse consistent with elevated right atrial pressure. Conclusions: Normal left ventricular systolic function. Normal left ventricular cavity size. Normal left ventricular wall thickness. Ejection fraction is visually estimated at 55-60 %. Tissue Doppler/Mitral Doppler indices are consistent with impaired relaxation (Stage I diastolic dysfunction). Normal appearance and function of the mitral valve with trace physiologic regurgitation. No significant aortic stenosis or insufficiency. Aortic cusps appear mildly calcified. Normal appearance of the tricuspid valve. Estimated peak PA systolic pressure 38 mmHg. There is mild tricuspid regurgitation. Electronically Signed By: Sky Chandler 2018-10-01 11:07:11 PDT
[2018-10-01] MEDS ORDERED: IODIXANOL LOCM 100 ML BTL ONE (13:45)
[2018-10-01] MEDS ORDERED: SOD CHLORIDE 0.9% 100 ML ONE (13:45)
--- NOTE | 2018-10-01 13:45 | CONS ---
DATE OF ADMISSION: 09/30/2018 DATE OF CONSULTATION: 10/01/2018 TYPE OF CONSULTATION: Cardiology. REFERRING PHYSICIAN: Miguel Hsu MD REASON FOR EVALUATION: Dyspnea on exertion, CHF exacerbation. HISTORY OF PRESENT ILLNESS: Ms. Valdez is a 73-year-old woman with history of hypertension, dyslipide isrrael, history of CHF in the past, history of paroxysmal atrial fibrillation, currently in sinus rhythm , hypothyroidism, rheumatoid arthritis, who comes to the hospital for evaluation of fluid retention. Apparently, the patient has been retaining fluid for several days and she came to the hospital to be evaluated. There has been no obvious medication change in the last 2 months. The patient is hemody namically stable at this particular point. She did not rule in for acute ischemia. Troponin is 0.01 2. Her EKG shows sinus rhythm and some nonspecific ST-T changes. I think for now, conservative ther apy is expected. The patient does not appear to be anticoagulated for atrial fibrillation which is a little bit unusual and then further investigation would be warranted. Other than that, conservative therapy is expected. PAST MEDICAL HISTORY: 1. Hypertension. 2. Dyslipidemia. 3. History of reported paroxysmal atrial fibrillation not on anticoagulation. 4. History of hypertension. 5. History of CHF with increased dyspnea on exertion. 6. History of recent travel, but no other signs of DVT. ALLERGIES: NO KNOWN DRUG ALLERGIES. SOCIAL HISTORY: The patient is smoker. Does not drink, does not use any drugs. FAMILY HISTORY: Negative for sudden cardiac . History of diabetes in the family. HOME MEDICATIONS: 1. Coreg 6.25 mg b.i.d. 2. Methotrexate 15 mg once a day. 3. Amlodipine 10 mg once a day. 4. Atorvastatin 20 mg once a day. 5. Vitamin D. 6. Iron. 7. Folic acid. 8. Hydralazine. 9. Losartan 25 mg once a day. REVIEW OF SYSTEMS: CONSTITUTIONAL: No fevers, no chills, no recent weight change. HEENT: No change in vision or hearing. CARDIAC: Chest pain reported now. RESPIRATORY: Short of breath, acute on chronic, better with Lasix. GASTROINTESTINAL: No nausea, vomiting, diarrhea, constipation. GENITOURINARY: No dysuria, hematuria. NEUROLOGIC: No focal neurologic deficits. HEMATOLOGIC: No easy bruising. PSYCHIATRIC: History of psychiatric illness. PHYSICAL EXAMINATION: VITAL SIGNS: Temperature is 98.3, heart rate 72, blood pressure is 153/61. GENERAL: She is well-nourished woman in no acute distress, alert and oriented x3, in [place], aware of her condition. HEENT: Head: Normocephalic, atraumatic. Eyes are anicteric. NECK: Supple. JVD is 8 to 9 cm. There is no lymphadenopathy. HEART: Regular, soft holosystolic murmur. PMI is minimally displaced. There is no S3. LUNGS: Coarse at the base. ABDOMEN: Distended. Bowel sounds are present. There is no hepatosplenomegaly. GENITOURINARY: Intact. EXTREMITIES: Showed no clubbing or cyanosis. Trace edema. DIAGNOSTIC DATA: ECG read by me shows sinus rhythm at the rate of [address]-T pop ges. LABORATORY DATA: White blood cell count 9.4, hemoglobin 7.5, platelets 256. INR is 0.9. Sodium 141 , potassium 4.1, BUN 25, creatinine 1.5. TSH is 0.012. ASSESSMENT AND PLAN: 1. Shortness of breath. Shortness of breath is likely multifactorial. Congestive heart failure is likely diagnosis. The patient has diastolic heart failure per last 2D echo. Continue gentle diuresi s. The patient feels better since presentation. 2. Atrial fibrillation. The patient has atrial fibrillation by report so likely paroxysmal and she is in sinus rhythm right now. I think for now, conservative therapy is indicated. We will adjust me dicines as needed. 3. Secondary hypercoagulable state. The patient is not on anticoagulation. Hemoglobin is low. Con tinue to hold anticoagulation therapy and iron placement currently. 4. Rheumatoid arthritis. Defer to primary team. The patient is on methotrexate and other medicatio ns. 5. Anemia. Hemoglobin is low at 7.5. On last admission, she was 8.7. We will defer further invest igation to primary team and hematology. I would like to thank Dr. Hsu for referring this patient for my evaluation. Dictated By: MIKE FERNANDEZ MD ML/NTS Conf#: [id number] DID#: [id number] CC: MIGUEL HSU MD;*EndCC*
[2018-10-01] MEDS: ATORVASTATIN 20 MG TAB PO SCH (20:09)
[2018-10-02] VITALS (10 sets, daily range): BP systolic 110–138; BP diastolic 52–67; PULSE 66–90; RESP 16–20
[2018-10-02] MEDS: LEVOTHYROXINE 25 MCG TAB PO SCH (06:05)
[2018-10-02] MEDS: FERROUS SULFATE (EC) 325 MG TAB PO SCH (08:33)
[2018-10-02] MEDS: FOLIC ACID 1 MG TAB PO SCH (08:34)
[2018-10-02] MEDS: AMLODIPINE 10 MG TAB PO SCH (08:34)
[2018-10-02] MEDS: ASCORBIC ACID 250 MG TAB PO SCH (08:34)
[2018-10-02] MEDS: CYANOCOBALAMIN 500 MCG TAB PO SCH (08:34)
[2018-10-02] MEDS ORDERED: FURO40TA4 PO (13:26)
[2018-10-02] MEDS ORDERED: DOCU-144 PO (13:26)
[2018-10-02] MEDS ORDERED: FER325 PO (13:26)
[2018-10-02] MEDS ORDERED: POTA20TA96 PO (13:26)
[2018-10-02] MEDS ORDERED: FUROSEMIDE 40 MG INJ IV ONE (13:30)
--- NOTE | 2018-10-02 13:44 | EN ---
Date/Time of Note Date/Time of Note DATE: 10/02/18 TIME: 13:44 DARNELL GIL October 02, 2018 13:44
--- NOTE | 2018-10-02 13:58 | EN ---
Date/Time of Note Date/Time of Note DATE: 10/02/18 TIME: 13:55 Event Note Medicine Medicine Event Note LATE PROGRESS NOTE DATE OF SERVICE: 10/01/18 SUBJECTIVE: feels better, still with mild SOB OBJECTIVE: General: A&O x3, answering questions appropriately HEENT: NC/ AT. PERRL. EOM intact Neck: supple CVS: S1, S2, RRR. no murmurs. no pain on chest wall palpation Lungs: CTA b/l. no wheezing or rhonchi, patient is still diminished with mild crackles Abd: soft, nontender, +BS Ext: moving all extremities skin: no rashes ASSESSMENT: 1. dyspnea on exertion / CHF exacerbation. 2. hypertension: Continue patient's home blood pressure medications 3. rheumatoid arthritis: Patient takes methotrexate every Sunday. Will resume if she has a prolonged hospital stay 4. hypothyroidism: We will check a TSH, resume levothyroxine 5. diabetes mellitus: Currently not on any medications, will check hemoglobin A1c. Her previous hemoglobin A1c 1 year ago showed good control. 6. paroxysmal A. fib: Patient currently in normal sinus rhythm 7. hyperlipidemia: Continue statin 8. anemia of chronic disease: Hemoglobin is 7.3. No signs of any active bleeding. This is likely in the setting of patient's rheumatoid arthritis. Will check iron stores. Continue ferrous sulfate. Will check stool occult blood. Vitals Vital Signs Date Temp Pulse Resp B/P (MAP) Pulse Ox O2 O2 Flow FiO2 Time Delivery Rate 10/01/18 72 08:01 10/01/18 98.3 20 153/61 95 Room Air 07:32 (91) 10/01/18 4.0 02:59 Intake and Output 09/30/18 09/30/18 10/01/18 1515:00 23:00 07:00 IntakeIntake Total 240 ml BalanceBalance 240 ml Labs Result Diagram: 10/01/18 0638 10/01/18 0638 Results 24hrs Laboratory Tests Test 09/30/18 18:23 09/30/18 23:29 10/01/18 06:38 White Blood Count 10.4 # 9.4 Red Blood Count 2.51 L 2.67 L Hemoglobin 7.3 L 7.5 L Hematocrit 24.3 L 25.8 L Mean Corpuscular Volume 96.8 96.6 Mean Corpuscular Hemoglobin 29.1 28.1 L Mean Corpuscular Hemoglobin Concent 30.0 L 29.1 L Red Cell Distribution Width 16.2 H 16.2 H Platelet Count 255 256 Mean Platelet Volume 9.8 9.4 Immature Granulocytes % 0.600 H 0.400 Neutrophils % 66.1 66.1 Lymphocytes % 22.7 21.7 Monocytes % 6.6 8.1 Eosinophils % 3.7 3.1 Basophils % 0.3 0.6 Nucleated Red Blood Cells % 0.2 H 0.3 H Immature Granulocytes # 0.060 H 0.040 H Neutrophils # 6.9 6.2 Lymphocytes # 2.4 2.0 Monocytes # 0.7 0.8 Eosinophils # 0.4 0.3 Basophils # 0.0 0.1 Nucleated Red Blood Cells # 0.0 0.0 Prothrombin Time 13.2 Prothrombin Time Ratio 1.0 INR International Normalized Ratio 0.99 Activated Partial Thromboplast Time 22.8 L D-Dimer 1117.65 H D-Dimer Comment Sodium Level 140 141 Potassium Level 5.0 4.1 Chloride Level 108 106 Carbon Dioxide Level 23 27 Anion Gap 9 8 Blood Urea Nitrogen 24 H 23 H Creatinine 1.10 H 1.05 H Est Glomerular Filtrat Rate mL/min Glucose Level 106 101 Calcium Level 9.0 9.0 Troponin I < 0.012 < 0.012 < 0.012 B-Type Natriuretic Peptide 606 H Creatine Kinase 115 99 Creatine Kinase Index 2.2 2.2 Creatinine Kinase MB (Mass) 2.48 H 2.19 Hemoglobin A1c 5.2 Magnesium Level 2.1 Iron Level 44 Total Iron Binding Capacity 366 Percent Iron Saturation 12 L Ferritin 19.5 Total Bilirubin 0.5 Direct Bilirubin 0.00 Indirect Bilirubin 0.5 Aspartate Amino Transf (AST/SGOT) 28 Alanine Aminotransferase (ALT/SGPT) 14 Alkaline Phosphatase 125 H Total Protein 7.0 Albumin 3.7 Globulin 3.30 H Albumin/Globulin Ratio 1.12 Triglycerides Level 86 Cholesterol Level 126 LDL Cholesterol, Calculated 47 HDL Cholesterol 62 Cholesterol/HDL Ratio 2.0 Thyroid Stimulating Hormone (TSH) 6.770 H Medications Medications Current Medications IV Flush (NS 3 ml) 3 ml PER PROTOCOL IV ; Start 09/30/18 at 20:30 Ondansetron HCl (Zofran Inj) 4 mg Q6H PRN IV NAUSEA/VOMITING; Start 09/30/18 at 20:30 Acetaminophen (Tylenol Tab) 650 mg Q6H PRN PO .PAIN 1-3 OR TEMP; Start 09/30/18 at 20:30 Docusate Sodium (Colace) 100 mg Q12H PRN PO .CONSTIPATION; Start 09/30/18 at 20:30 Bisacodyl (Dulcolax) 5 mg DAILY PRN PO .CONSTIPATION; Start 09/30/18 at 20:30 Amlodipine Besylate (Norvasc) 10 mg DAILY PO Last administered on 10/01/18 09:25; Admin Dose 10 MG; Start 10/01/18 at 09:00 Atorvastatin Calcium (Lipitor) 20 mg QHS PO Last administered on 09/30/18 23:59; Admin Dose 20 MG; Start 09/30/18 at 21:00 Ferrous Sulfate (Ferrous Sulfate (Ec)) 325 mg DAILY PO Last administered on 10/01/18 09:20; Admin Dose 325 MG; Start 10/01/18 at 09:00 Folic Acid (Folic Acid) 1 mg DAILY PO Last administered on 10/01/18 09:25; Admin Dose 1 MG; Start 10/01/18 at 09:00 Hydralazine HCl (Apresoline) 25 mg BID PO Last administered on 10/01/18 09:21; Admin Dose 25 MG; Start 09/30/18 at 21:00 Levothyroxine Sodium (Synthroid) 25 mcg BEFORE BREAKFAST PO Last administered on 10/01/18 06:07; Admin Dose 25 MCG; Start 10/01/18 at 07:00 Ascorbic Acid (Vitamin C) 250 mg BID PO Last administered on 10/01/18 09:25; Admin Dose 250 MG; Start 09/30/18 at 21:00 Cyanocobalamin (Vitamin B12) 1,000 mcg DAILY PO Last administered on 10/01/18 09:25; Admin Dose 1,000 MCG; Start 10/01/18 at 09:00 Furosemide (Lasix) 40 mg BID DIURETICS IV Last administered on 10/01/18 06:07; Admin Dose 40 MG; Start 10/01/18 at 06:00; Stop 10/02/18 at 05:59 DANRELL GIL October 02, 2018 13:58
--- NOTE | 2018-10-02 14:04 | DS ---
Date/Time of Note Date/Time of Note DATE: 10/02/18 TIME: 13:59 Discharge Summary Admission/Discharge Info Admit Date/Time September 30, 2018 at 20:11 Discharge Date/Time Discharge Diagnosis 1. CHF exacerbation: Compensated 2. Hypertension 3. Chronic hypothyroidism with suboptimal control 4. Chronic iron deficiency anemia 5. Chronic rheumatoid arthritis 6. History of dyslipidemia on statin 7. Questionable history of atrial fibrillation, this is a supposedly reported, however chart her hospitalization patient had no arrhythmias. -Patient is not on prior anticoagulation. Cardiology has been following, no recommendations for anticoagulation. -Patient is to follow-up with primary care doctor OCTAVIO to see if anticoagulation is required. . Patient Condition: Stable Consults Cardiology: Sky Chandler MD . Hospital Course 73-year-old female with recent history of travel who had come in with dyspnea on exertion. She was found to also have elevated d-dimer. She was treated for CHF exacerbation with good response. She ruled out for acute coronary syndrome. CT angiogram did not show PE. At this time she is compensated and is stable for discharge. She will follow-up with primary care in the next 1 to 2 weeks. Patient also has chronic iron deficiency. She was maintained on iron santillan pplementation during her hospitalization. Hemoglobin levels while low, remains stable. No acute intervention required at this time. . Home Meds Active Scripts Potassium Chloride* (Potassium Chloride*) 20 Meq Tablet.er, 20 MEQ PO DAILY, #30 TAB.SA Prov:DARNELL GIL. 10/02/18 Furosemide* (Furosemide*) 40 Mg Tablet, 40 MG PO DAILY, #30 TAB Prov:DARNELL GIL. 10/02/18 Docusate Sodium* (Colace*) 100 Mg Capsule, 100 MG PO Q12H PRN for .CONSTIPATION, #60 CAP 2 Refills Prov:DARNELL GIL. 10/02/18 Ferrous Sulfate* (Ferrous Sulfate*) 325 Mg Tabec, 325 MG PO TID, #90 TAB 2 Refills Prov:DARNELL GIL. 10/02/18 Reported Medications Ascorbic Acid* (Vitamin C* Chew) 125 Mg Tab.chew, 250 MG PO BID, TAB.CHEW 09/30/18 Methotrexate* (Methotrexate*) 2.5 Mg Tab, 15 MG PO Q SUN, TAB 09/30/18 Folic Acid* (Folic Acid*) 1 Mg Tablet, 1 MG PO DAILY, TAB 09/30/18 Carvedilol* (Carvedilol*) 6.25 Mg Tablet, 6.25 MG PO BID, #60 TAB 09/30/18 Hydralazine Hcl* (Hydralazine Hcl*) 25 Mg Tab, 25 MG PO BID, #60 TAB 09/30/18 Atorvastatin Calcium* (Atorvastatin Calcium*) 20 Mg Tablet, 20 MG PO QHS, #30 TAB 09/30/18 Amlodipine Besylate* (Amlodipine Besylate*) 10 Mg Tablet, 10 MG PO DAILY, #30 TAB 09/30/18 Levothyroxine Sodium* (Levothyroxine Sodium*) 25 Mcg Tablet, 25 MCG PO BEFORE BREAKFAST, #30 TAB 09/30/18 Cyanocobalamin (Vitamin B-12) (Vitamin B-12) 1,000 Mcg Capsule, 1000 MCG PO DAILY, CAP 09/30/18 Discontinued Reported Medications Labetalol Hcl (Labetalol Hcl) 100 Mg Tab, 100 MG PO BID, TAB 02/16/18 Atorvastatin* (Atorvastatin*) 40 Mg Tablet, 20 MG PO QHS, #30 TAB 02/16/18 Acetaminophen* (Tylenol*) 500 Mg Tab, 500 MG PO NEEDED PRN for MILD PAIN LEVEL 1-3, TAB 06/19/17 Levothyroxine Sodium* (Levothyroxine Sodium*) 25 Mcg Tablet, 25 MCG PO BEFORE BREAKFAST, #30 TAB 06/19/17 Folic Acid* (Folic Acid*) 1 Mg Tablet, 1 MG PO DAILY, TAB 06/19/17 Simvastatin* (Zocor*) 40 Mg Tablet, 40 MG PO QHS, #30 TAB 06/19/17 Methotrexate* (Methotrexate*) 2.5 Mg Tab, 2.5 MG PO Q7D, TAB TAKE 7TAB-Q7D FOR 1 MONTH,THEN 6TAB-Q7D AND IF JOINT PAIN DONT GO BACK TO TAKE 8TAB-Q7D 06/19/17 Metformin Hcl* (Metformin Hcl*) 500 Mg Tablet, 500 MG PO WITH BREAKFAST DINNE, #60 TAB 06/19/17 Hydrochlorothiazide* (Hydrochlorothiazide*) 25 Mg Tab, 25 MG PO DAILY, #30 TAB 06/19/17 Discontinued Scripts Furosemide* (Furosemide*) 20 Mg Tablet, 20 MG PO Q48H, #60 TAB Prov:POLINA DICKINSON MD 02/20/18 Ferrous Sulfate* (Ferrous Sulfate*) 325 Mg Tabec, 325 MG PO DAILY, #90 TAB 3 Refills Prov:POLINA DICKINSON MD 02/20/18 Clotrimazole* (Clotrimazole* AF) 1% - 30 Gm Cream.gm., 1 APPLIC TOP BID for 7 Days, TUB Prov:TOYA SHAH PA-C 10/08/17 Docusate Sodium* (Colace*) 100 Mg Capsule, 100 MG PO BID PRN for CONSTIPATION, #60 CAP Prov:REGIDORRUPERTO 06/23/17 Pantoprazole* (Protonix*) 40 Mg Tablet.dr, 40 MG PO DAILY, #30 TAB Prov:REGIDORRUPERTO 06/23/17 Benazepril Hcl* (Benazepril Hcl*) 40 Mg Tablet, 40 MG PO DAILY, #30 TAB Prov:REGIDORUPERTO [place] 18 Amlodipine Besylate* (Amlodipine Besylate*) 10 Mg Tablet, 10 MG PO DAILY, #30 TAB Prov:REGIDORUPERTO [place] 18 Follow-up Plan Followup with your primary doctor within the next 1-2 weeks. If you don't have one please let someone know, we can give you resources that may help you pick one. You may call Dr Inderjit Pan's office. he's accepting new patients Name, Degree: Inderjit Pan MD Specialty: Internal Medicine Comments: Office Address: [address] [place] [address] Office Office You may also call your insurance company to assign one to you. Review your medication list with your nurse before leaving and if you need new prescriptions please let your nurse know. I may have made changes to your home medications or given you new prescriptions, please let your primary doctor know as well. Stay compliant with your medications and report any side effects to your PCP or pharmacist. Return to the ER if you have any concerns and cannot reach your doctors or call your insurance company, they usually have a nurse that can help you. Primary Care Provider [facility]. Time spent on discharge: > 30 minutes DARNELL GIL October 02, 2018 14:04
--- NOTE | 2018-10-02 15:09 | CONS ---
Assessment/Plan Assessment/Plan Hospital Course (Demo Recall) IMP: 1.CHF 2.PAF 3.HTN 4.RA Recc: -Tele -serial ecg's -continue norvasc/statin -Continue lasix diuresis Consultation Date/Type/Reason Admit Date/Time September 30, 2018 at 20:11 Initial Consult Date 10/01/18 Type of Consult Cardiology Reason for Consultation CHF Requesting Provider: MIGUEL HSU Date/Time of Note DATE: 10/02/18 TIME: 15:05 Exam/Review of Systems Vital Signs Vitals Vital Signs Date Temp Pulse Resp B/P (MAP) Pulse Ox O2 O2 Flow FiO2 Time Delivery Rate 10/02/18 66 14:07 10/02/18 98.6 20 130/56 97 Nasal 11:25 (80) Cannula 10/02/18 2.0 09:30 Intake and Output 10/01/18 10/01/18 10/02/18 1515:00 23:00 07:00 IntakeIntake Total 800 ml 500 ml BalanceBalance 800 ml 500 ml Exam Exam Review of Systems: CONSTITUTIONAL: No fevers, chills. PULMONARY: mild sob CARDIOVASCULAR: No chest pain/palpitations GASTROINTESTINAL: No nausea/vomiting. GENITOURINARY: No hematuria/dysuria. MUSCULOSKELETAL: No myagias/arthalgias. PSYCHIATRIC: The patient denies depression. NEUROLOGIC: No weakness Constitutional: alert Psych: no complaints Head: normocephalic ENMT: mucosa pink and moist Neck: supple, jvd (9 cm water) Respiratory: diminished breath sounds (at bases/B) Cardiovascular: regular rate and rhythm Gastrointestinal: soft, non-tender Musculoskeletal: muscle tone (normal) Extremities: edema (nonr) Neurological: other (No gabe ) Labs Result Diagram: 10/01/18 0638 10/01/18 0638 Medications Medications Current Medications IV Flush (NS 3 ml) 3 ml PER PROTOCOL IV ; Start 09/30/18 at 20:30 Ondansetron HCl (Zofran Inj) 4 mg Q6H PRN IV NAUSEA/VOMITING; Start 09/30/18 at 20:30 Acetaminophen (Tylenol Tab) 650 mg Q6H PRN PO .PAIN 1-3 OR TEMP; Start 09/30/18 at 20:30 Docusate Sodium (Colace) 100 mg Q12H PRN PO .CONSTIPATION; Start 09/30/18 at 20:30 Bisacodyl (Dulcolax) 5 mg DAILY PRN PO .CONSTIPATION; Start 09/30/18 at 20:30 Amlodipine Besylate (Norvasc) 10 mg DAILY PO Last administered on 10/02/18 08:34; Admin Dose 10 MG; Start 10/01/18 at 09:00 Atorvastatin Calcium (Lipitor) 20 mg QHS PO Last administered on 10/01/18at 20:09; Admin Dose 20 MG; Start 09/30/18 at 21:00 Ferrous Sulfate (Ferrous Sulfate (Ec)) 325 mg DAILY PO Last administered on 10/02/18 08:33; Admin Dose 325 MG; Start 10/01/18 at 09:00 Folic Acid (Folic Acid) 1 mg DAILY PO Last administered on 10/02/18 08:34; Admin Dose 1 MG; Start 10/01/18 at 09:00 Hydralazine HCl (Apresoline) 25 mg BID PO Last administered on 10/02/18 08:34; Admin Dose 25 MG; Start 09/30/18 at 21:00 Levothyroxine Sodium (Synthroid) 25 mcg BEFORE BREAKFAST PO Last administered on 10/02/18 06:05; Admin Dose 25 MCG; Start 10/01/18 at 07:00 Ascorbic Acid (Vitamin C) 250 mg BID PO Last administered on 10/02/18 08:34; Admin Dose 250 MG; Start 09/30/18 at 21:00 Cyanocobalamin (Vitamin B12) 1,000 mcg DAILY PO Last administered on 10/02/18 08:34; Admin Dose 1,000 MCG; Start 10/01/18 at 09:00 MIGUE ARORA October 02, 2018 15:09
== END 2018-10-02 18:58 | disposition home or self-care (01) ==
LOC: E/R 13:21 → TEL 20:11
PROVIDERS: ADMIT Family Medicine; ATTEND Family Medicine
DX: I11.0 Hypertensive heart disease with heart failure (principal); I50.9 Heart failure, unspecified; E78.5 Hyperlipidemia, unspecified; E03.9 Hypothyroidism, unspecified; E11.9 Type 2 diabetes mellitus without complications; Z79.84 Long term (current) use of oral hypoglycemic drugs; D50.9 Iron deficiency anemia, unspecified; M06.9 Rheumatoid arthritis, unspecified; I48.0 Paroxysmal atrial fibrillation
CPT/HCPCS: 36415; 71045; 71275; 80048; 80053; 80061; 82550; 82553; 82728; 83036; 83540; 83735; 83880; 84439; 84443; 84484; 85025; 85378; 85610; 85730; 93005; 93306; 93970; 96374; 99285; G0378; J1650; J1940; Q9967

== ENCOUNTER 2018-12-02 07:34 | Inpatient (IN) | payer MEDICARE, OTHER ==
[~2018-12-02] VITALS: Ht 152.4 cm; Wt 76.9 kg
[~2018-12-02 07:34] MED LIST changes: +ASCO125T PO; +ATOR20TA38 PO; -ATOR40TA68 PO; -BENA40TA56 PO; +CARV6.2579 PO; -CLOT30CR24 TOP; +CYAN-23 PO; -FURO20TA3 PO; +FURO40TA4 PO; +HYDR-3671 PO; -HYDR25TA6 PO; -LABE100T39 PO; -METF500T24 PO; -PANT40TA3 PO; +POTA20TA96 PO; -SIMV40TA2 PO; -TYL500 PO
[2018-12-02] MEDS ORDERED: IPRATROPIUM (NEB) 0.5 MG/2.5 ML AMP INH STA (08:01)
[2018-12-02] MEDS ORDERED: ALBUTEROL 0.5% (NEB) 2.5 MG/0.5 ML AMP INH STA (08:01)
[2018-12-02] MEDS ORDERED: FUROSEMIDE 40 MG INJ IV ONE (08:30)
--- NOTE | 2018-12-02 09:35 | ERD ---
ER Documentation Chief Complaint Chief Complaint PT C/O SOB X4 DAYS, NO COUGH, NO CP HPI This is a 73-year-old female with a past medical history of congestive heart failure hypothyroidism tonic iron deficiency anemia. The patient also has rheumatoid arthritis and dyslipidemia on statins. The patient takes 40 mg of Lasix daily. For the past 4 days she indicates that she has been having severe shortness of breath with exertion. She denies any recent travel or prolonged immobilization. She said no fevers no shaking no chills. She denies any hemoptysis hematemesis and she also denies any melanotic stools. The patient does have a history of chronic iron deficiency anemia. She had a hemoglobin of 5.9 when she had been admitted to the hospital June 19, 2017 required blood transfusion. She had been maintained on iron supplementation which she states she is currently taking. She has no chest pain or pressure. She denies any abdominal pain. She denies any swelling of her lower extremities. She denies a productive or nonproductive cough. ROS All systems reviewed and are negative except as per history of present illness. Medications Home Meds Active Scripts Docusate Sodium* (Colace*) 100 Mg Capsule, 100 MG PO Q12H PRN for .CONSTIPATION, #60 CAP 2 Refills Prov:DARNELL GIL M. 10/02/18 Ferrous Sulfate* (Ferrous Sulfate*) 325 Mg Tabec, 325 MG PO TID, #90 TAB 2 Refills Prov:LUIS A GILSAI [place]. 10/02/18 Reported Medications Ascorbic Acid* (Vitamin C* Chew) 125 Mg Tab.chew, 250 MG PO BID, TAB.CHEW 09/30/18 Methotrexate* (Methotrexate*) 2.5 Mg Tab, 15 MG PO Q SUNDAY, TAB 09/30/18 Folic Acid* (Folic Acid*) 1 Mg Tablet, 1 MG PO DAILY, TAB 09/30/18 Carvedilol* (Carvedilol*) 6.25 Mg Tablet, 6.25 MG PO BID, #60 TAB 09/30/18 Hydralazine Hcl* (Hydralazine Hcl*) 25 Mg Tab, 25 MG PO BID, #60 TAB 09/30/18 Atorvastatin Calcium* (Atorvastatin Calcium*) 20 Mg Tablet, 20 MG PO QHS, #30 TAB 09/30/18 Amlodipine Besylate* (Amlodipine Besylate*) 10 Mg Tablet, 10 MG PO DAILY, #30 TAB 09/30/18 Levothyroxine Sodium* (Levothyroxine Sodium*) 25 Mcg Tablet, 25 MCG PO BEFORE BREAKFAST, #30 TAB 09/30/18 Cyanocobalamin (Vitamin B-12) (Vitamin B-12) 1,000 Mcg Capsule, 1000 MCG PO DAILY, CAP 09/30/18 Discontinued Scripts Potassium Chloride* (Potassium Chloride*) 20 Meq Tablet.er, 20 MEQ PO DAILY, #30 TAB.SA Prov:DARNELL GIL. 10/02/18 Furosemide* (Furosemide*) 40 Mg Tablet, 40 MG PO DAILY, #30 TAB Prov:DARNELL GIL. 10/02/18 Allergies Allergies: Coded Allergies: No Known Allergy (Unverified , 12/02/18) PMhx/Soc History of Surgery: Yes (hysterectomy) Anesthesia Reaction: No Hx Neurological Disorder: No Hx Respiratory Disorders: No Hx Cardiac Disorders: Yes Hx Psychiatric Problems: No Hx Miscellaneous Medical Probl: No Hx Alcohol Use: No Hx Substance Use: No Hx Tobacco Use: No Smoking Status: Never smoker Physical Exam Vitals Vital Signs Date Temp Pulse Resp B/P (MAP) Pulse Ox O2 O2 Flow FiO2 Time Delivery Rate 12/02/18 Nasal 2 08:29 Cannula 12/02/18 98.3 78 19 184/66 92 07:37 (105) Physical Exam Constitutional:Well-developed. Well-nourished. HEENT:Normocephalic. Atraumatic.Pupils were equal round reactive to light. Moist mucous membranes.No tonsillar exudates. Conjunctival pallor Neck: No nuchal rigidity. No lymphadenopathy. No posterior cervical spine tenderness or step-offs. Respiratory: Not using accessory muscles of respiration.Lungs were clear to auscultation bilaterally. Bilateral rhonchi. No rales. No wheezing. Cardiovascular: Regular rate regular rhythm.No murmurs. No rubs were appreciated.S1, S2 normal. Distal pulses are palpable 2+ bilaterally. GI: Abdomen was soft. Nontender. Non Distended. No pulsatile abdominal masses or bruits. No rebound. No guarding. Bowel sounds were present and normal. Muscle skeletal: Full range of motion of both the upper and lower extremities bilaterally.Normal muscle tone.No assymetrical calf tenderness or swelling. Rectal: No bright blood per rectum. No hemorrhoids. Fecal occult sample was taken by myself and sent to the lab for evaluation Skin: No petechia, no purpura. No lesions on the palms or the soles of the feet. No maculopapular rash. NEURO: Patient was alert, awake, orientated x3.No facial droop. Gait observed and normal with no ataxia.Speech had regular rate and rhythm. No focal neurological deficits. Result Diagram: 12/02/18 0801 12/02/18 0801 Results 24 hrs Laboratory Tests Test 12/02/18 08:01 White Blood Count 7.7 10^3/ul Red Blood Count 2.30 10^6/ul Hemoglobin 6.4 g/dl Hematocrit 22.5 % Mean Corpuscular Volume 97.8 fl Mean Corpuscular Hemoglobin 27.8 pg Mean Corpuscular Hemoglobin Concent 28.4 g/dl Red Cell Distribution Width 15.4 % Platelet Count 278 10^3/UL Mean Platelet Volume 9.1 fl Immature Granulocytes % 0.500 % Neutrophils % % Segmented Neutrophils % (Manual) 68 % Band Neutrophils % (Manual) 2 % Lymphocytes % % Lymphocytes % (Manual) 21 % Monocytes % % Monocytes % (Manual) 5 % Eosinophils % % Eosinophils % (Manual) 3 % Basophils % % Basophils % (Manual) 1 % Nucleated Red Blood Cells % 0.0 /100WBC Immature Granulocytes # 0.040 10^3/ul Neutrophils # 10^3/ul Neutrophils # (Manual) 5.2 10^3/ul Band Neutrophils # 0.1 10^3/ul Lymphocytes (Manual) 1.6 10^3/ul Lymphocytes # 10^3/ul Monocytes # 10^3/ul Monocytes # (Manual) 0.3 10^3/ul Eosinophils # 10^3/ul Basophils # 10^3/ul Basophils # (Manual) 0.0 10^3/ul Nucleated Red Blood Cells # 10^3/ul Pathologist Review (Hematology) YES Platelet Estimate NORMAL Giant Platelets 1 % Polychromasia 3+ Hypochromasia 1+ Anisocytosis 1+ Macrocytosis 1+ Prothrombin Time 13.3 Sec Prothrombin Time Ratio 1.0 INR International Normalized Ratio 1.00 Activated Partial Thromboplast Time 29.4 Sec Urine Color STRAW Urine Clarity CLEAR Urine pH 6.0 Urine Specific [place] 1.006 Urine Ketones NEGATIVE mg/dL Urine Nitrite NEGATIVE mg/dL Urine Bilirubin NEGATIVE mg/dL Urine Urobilinogen NEGATIVE mg/dL Urine Leukocyte Esterase NEGATIVE Srinath/ul Urine Hemoglobin NEGATIVE mg/dL Urine Glucose NEGATIVE mg/dL Urine Total Protein NEGATIVE mg/dl Sodium Level 140 mmol/L Potassium Level 4.1 mmol/L Chloride Level 104 mmol/L Carbon Dioxide Level 26 mmol/L Anion Gap 10 Blood Urea Nitrogen 13 mg/dl Creatinine 1.12 mg/dl Est Glomerular Filtrat Rate mL/min mL/min Glucose Level 141 mg/dl Calcium Level 9.1 mg/dl Total Bilirubin 0.3 mg/dl Direct Bilirubin 0.00 mg/dl Indirect Bilirubin 0.3 mg/dl Aspartate Amino Transf (AST/SGOT) 25 IU/L Alanine Aminotransferase (ALT/SGPT) 17 IU/L Alkaline Phosphatase 101 IU/L Creatine Kinase 105 IU/L Creatine Kinase Index 1.9 Creatinine Kinase MB (Mass) 1.96 ng/ml Troponin I < 0.012 ng/ml B-Type Natriuretic Peptide 491 PG/ML Total Protein 7.1 g/dl Albumin 3.7 g/dl Globulin 3.40 g/dl Albumin/Globulin Ratio 1.08 Current Medications Medications Dose Sig/Kimmy Start Time Status Last (Trade) Ordered Route PRN Stop Time Admin Dose Reason Admin Albuterol 5 mg ONCE STAT 12/02/18 DC 12/02/18 (Proventil INH 08:01 09:07 0.5% (Neb)) 12/02/18 08:07 Ipratropium 1 mg ONCE STAT 12/02/18 DC 12/02/18 [place] INH 08:01 09:06 (Atrovent 12/02/18 08:07 0.02% (Neb)) Furosemide 40 mg ONCE ONCE 12/02/18 DC 12/02/18 (Lasix) IV 08:30 08:52 12/02/18 08:31 Procedures/MDM The patient presented to the emergency department with shortness of breath. My differential diagnosis included but was not limited to upper airway obstruction, CHF, pulmonary embolism, cardiac ischemia, pneumonia, pneumothorax, anemia, drug overdose, pulmonary edema, COPD or asthma. 12 Lead EKG tracing ordered and reviewed by myself showed: Normal sinus rhythm of 67 bpm and no arrhythmia. MT interval normal. QRS duration normal. No ST segment elevation No ST segment depression. No changes consistent with acute ischemia. I obtained a 1 view chest radiograph which showed pulmonary vascular congestion cardiomegaly. There is no infiltrates to suggest pneumonia. The patient had a microcytic anemia with a hemoglobin of 6.4. She does have known history of iron deficiency anemia. Given the patient was symptomatic she will receive 1 unit of packed red blood cells in the emergency department after she signed a written consent to undergo blood transfusion. She was also treated for mild congestive heart failure exacerbation. Her BNP was slightly elevated. She was given IV Lasix in the emergency department 40 mg and also given a nebulizer treatment of albuterol and Atrovent. The patient will be admitted to the hospitalist Dr. Bains. I did feel the patient required admission to the telemetry service for monitoring of her pulse oximetry and heart rate given that she will be undergoing a blood transfusion. Critical Care: Time: 55 minutes Treatments/Evaluations: Close monitoring and treatment of unstable vital signs, cardiorespiratory, and neurologic status, while maintaining tight balance of fluid, respiratory, and cardiac interventions. Time does not include performing any of the above billable procedures. Departure Diagnosis: Primary Impression: CHF exacerbation Heart failure type: unspecified Qualified Codes: I50.9 - Heart failure, unspecified Additional Impression: Anemia Anemia type: iron deficiency Iron deficiency anemia type: unspecified iron deficiency Qualified Codes: D50.9 - Iron deficiency anemia, unspecified Condition: Serious MABEL IRBY MD Dec 02, 2018 09:35
[2018-12-02] MEDS ORDERED: ONDANSETRON 4 MG INJ IV PRN ×2 (10:00→12:30)
[2018-12-02] MEDS ORDERED: ACETAMINOPHEN 325 MG TAB PO PRN ×2 (10:00→12:30)
[2018-12-02 12:04] VITALS: Ht 152.4 cm; Wt 76.9 kg
[2018-12-02 12:10] VITALS: BP 176/71; PULSE 67; RESP 19
--- NOTE | 2018-12-02 12:14 | HP ---
Date/Time of Note Date/Time of Note DATE: 12/02/18 TIME: 12:14 Assessment/Plan VTE Prophylaxis SCD applied (from Nsg): Yes Pharmacological prophylaxis: NA/contraindicated Pharm contraindication: bleeding Lines/Catheters IV Catheter Type (from Nrsg): Saline Lock Assessment/Plan Hospital Course SUBJECTIVE: Lying in bed comfortably. Denies any N/V/ABD pain/diarrhea/fever/chills/hematochezia/hematemesis.Having mild SOB and feeling week. Having mild RLE edema. OBJECTIVE: Vital signs-see below PHYSICAL EXAM: Constitutional: Adequately built,not in acute distress. HEENT: Head atraumatic and normocephalic. Eyes: Extraocular muscles intact. Anicteric sclerae. Pupils equal bilaterally, reactive to light. NECK: Supple without lymph node. CHEST: Diminished bibasilar.Clear and good breath sounds equally. No wheezing. No rhonchi. HEART: S1, S2. Regular rate and rhythm. ABDOMEN: Soft/non tender with no rebound tenderness. Bowel sounds were present. EXTREMITIES: Trace edema on RLE. No cyanosis, clubbing . NEUROLOGIC: Alert and oriented x3. No focal deficit. No sensory deficit. PSYCHOSOCIAL: No signs of depression. INTEGUMENTARY: No open wounds. ASSESSMENT AND PLAN:73 yo M w/htn,dlp,RA here w/worsening SOB,found to have severe anemia with positive stool OB Acute GI bleed -GI consult for EGD -PPI prophylaxis Severe acute blood loss anemia secondary to GI bleed -Transfuse 2 units PRBC and total. -Monitor H&H closely -Add iron panel to a.m. labs drawn prior to transfusion and treat accordingly. Acute kidney injury, likely secondary to hemodynamics -Avoid nephrotoxins -Monitor renal function closely while receiving Lasix Acute on chronic diastolic HF -Preserved EF: TTE 10/06 -Patient seems like slightly overloaded with blood transfusion, as such we will go ahead and give a dose of Lasix. -Add BNP to a.m. labs to rule out CHF exacerbation. Last echo with stable ejection fraction. -Resume beta-blockers. Cardiology consultation Hypertension -pt takes beta-roxann/hydralazine at home which we will continue. Will add PRN clonidine for SBP above 170 -Hold amlodipine for now. Dyslipidemia -Resume statin Rheumatoid arthritis -Supportive care. Pain control Hypothyroidism -Resume Synthroid DVT prophylaxis: SCDs PUD prophylaxis: PPI Rest of the management depend on hospital course. Approximately 60 m spent on this history and physical. Patient was seen in collaboration with Dr. Bains. Result Diagram: 12/02/18 0801 12/02/18 0801 Results 24hrs Laboratory Tests Test 12/02/18 08:01 12/02/18 09:15 White Blood Count 7.7 Red Blood Count 2.30 L Hemoglobin 6.4 *L Hematocrit 22.5 L Mean Corpuscular Volume 97.8 Mean Corpuscular Hemoglobin 27.8 L Mean Corpuscular Hemoglobin Concent 28.4 L Red Cell Distribution Width 15.4 H Platelet Count 278 Mean Platelet Volume 9.1 Immature Granulocytes % 0.500 H Neutrophils % Segmented Neutrophils % (Manual) 68 Band Neutrophils % (Manual) 2 Lymphocytes % Lymphocytes % (Manual) 21 Monocytes % Monocytes % (Manual) 5 Eosinophils % Eosinophils % (Manual) 3 Basophils % Basophils % (Manual) 1 Nucleated Red Blood Cells % 0.0 Immature Granulocytes # 0.040 H Neutrophils # Neutrophils # (Manual) 5.2 Band Neutrophils # 0.1 Lymphocytes (Manual) 1.6 Lymphocytes # Monocytes # Monocytes # (Manual) 0.3 Eosinophils # Basophils # Basophils # (Manual) 0.0 Nucleated Red Blood Cells # Pathologist Review (Hematology) YES Platelet Estimate NORMAL Giant Platelets 1 H Polychromasia 3+ Hypochromasia 1+ Anisocytosis 1+ Macrocytosis 1+ Prothrombin Time 13.3 Prothrombin Time Ratio 1.0 INR International Normalized Ratio 1.00 Activated Partial Thromboplast Time 29.4 Urine Color STRAW Urine Clarity CLEAR Urine pH 6.0 Urine Specific [place] 1.006 Urine Ketones NEGATIVE Urine Nitrite NEGATIVE Urine Bilirubin NEGATIVE Urine Urobilinogen NEGATIVE Urine Leukocyte Esterase NEGATIVE Urine Hemoglobin NEGATIVE Urine Glucose NEGATIVE Urine Total Protein NEGATIVE Sodium Level 140 Potassium Level 4.1 Chloride Level 104 Carbon Dioxide Level 26 Anion Gap 10 Blood Urea Nitrogen 13 Creatinine 1.12 H Est Glomerular Filtrat Rate mL/min Glucose Level 141 Calcium Level 9.1 Iron Level 27 L Total Iron Binding Capacity 396 Percent Iron Saturation 7 L Ferritin 11.2 Total Bilirubin 0.3 Direct Bilirubin 0.00 Indirect Bilirubin 0.3 Aspartate Amino Transf (AST/SGOT) 25 Alanine Aminotransferase (ALT/SGPT) 17 Alkaline Phosphatase 101 Lactate Dehydrogenase 530 Creatine Kinase 105 Creatine Kinase Index 1.9 Creatinine Kinase MB (Mass) 1.96 Troponin I < 0.012 B-Type Natriuretic Peptide 491 H Total Protein 7.1 Albumin 3.7 Globulin 3.40 H Albumin/Globulin Ratio 1.08 Stool Occult Blood POSITIVE HPI/ROS Admit Date/Time Admit Date/Time Dec 02, 2018 at 09:37 Hx of Present Illness This is a 73-year-old female with a history of hypertension, prediabetes, hypothyroidism, iron deficient anemia, rheumatoid arthritis, dyslipidemia, paroxysmal atrial fibrillation, diastolic dysfunction, presented to the emergency room with 4-day duration of worsening weakness associated with progressive shortness of breath with activities and walking. Apparently, patient had noticed rectal bleeding around 3 weeks ago which stopped spontaneously. She also has intermittent swelling on her right lower extremity.Patient denied chest pain, palpitation, nausea, vomiting, abdominal pain, loss of consciousness, dizziness, headache, numbness, constipation, diarrhea, fever, chills or other constitutional symptoms. Denied weight loss or loss of appetite. In the emergency room, patient was noted with initial hemoglobin 6.4, hematocrit 22.5, creatinine 1.12. Patient stool occult blood was positive in the emergency room. Chest x-ray with cardiomegaly with hilar vascular and interstitial congestion. Patient was given a unit of PRBC in the emergency room and was admitted for further evaluation. ROS A 12 point review of system was assessed and is negative other than what is mentioned in the HPI. PMH/Family/Social Past Medical History See HPI Medications Current Medications Ondansetron HCl (Zofran Inj) 4 mg ER BRIDGE PRN IV NAUSEA/VOMITING; Start 12/02/18 at 10:00; Stop 12/03/18 at 09:59 Acetaminophen (Tylenol Tab) 650 mg ER BRIDGE PRN PO .MILD PAIN 1-3 OR TEMP; Start 12/02/18 at 10:00; Stop 12/03/18 at 09:59 Coded Allergies: No Known Allergy (Unverified , 12/02/18) Past Surgical History Hysterectomy Past Surgical Hx: other Family History Significant Family History: no pertinent family hx Social History Denied history of alcohol, smoking or illicit drug use. Smoking Status: Never smoker Exam/Review of Systems Vital Signs Vitals Vital Signs Date Temp Pulse Resp B/P (MAP) Pulse Ox O2 O2 Flow FiO2 Time Delivery Rate 12/02/18 98.1 67 19 176/71 99 Nasal 1.0 12:10 (106) Cannula 12/02/18 09:10 LEVY GAVIN V. NEGATIVE ASSEMBLER Dec 02, 2018 12:14
[2018-12-02] MEDS ORDERED: SOD CHLORIDE 0.9% 250 ML IV* ONE (12:16)
[2018-12-02] MEDS ORDERED: hydrALAzine 20 MG INJ IV PRN (12:30)
[2018-12-02] MEDS ORDERED: NACL 0.9% 3 ML SYG IV SCH (12:30)
[2018-12-02] MEDS ORDERED: FUROSEMIDE 20 MG INJ IV SCH (12:30)
[2018-12-02] MEDS ORDERED: hydrALAzine 20 MG INJ IV ONE (13:00)
--- NOTE | 2018-12-02 14:55 | CONS ---
Assessment/Plan Assessment/Plan Hospital Course (Demo Recall) Summary Assessment and Plan: Assessment: Acute on chronic anemia -With recent history of hematochezia Acute kidney injury CHF Hypertension Dyslipidemia Rheumatoid arthritis Hypothyroidism Personal history of colon polyps Plan: Clear liquid diet NPO after 12/03/18 0800 EGD/.colonoscopy tomorrow Endoscopy - risks/benefits/alternatives/indications of procedure and sedation/anesthesia discussed with patient who states understanding and gives informed consent to proceed. Patient seen in collaboration with Dr. Johnson CC: JESSICA JOHNSON MD ; Consultation Date/Type/Reason Admit Date/Time Dec 02, 2018 at 09:37 Date of Consultation: Dec 02, 2018 Type of Consult GI Reason for Consultation Anemia Date/Time of Note DATE: 12/02/18 TIME: 14:51 Hx of Present Illness This is a 73-year-old Portuguese-speaking female with past medical history of hypertension, CHF, dyslipidemia, rheumatoid arthritis, hypothyroidism who presented to the hospital with complaints of shortness of breath on exertion and generalized weakness routine labs show severe normocytic anemia with a hemoglobin of 6.4. Of note patient states she recently noted bright red blood per rectum about 1 week ago no further overt signs of GI bleed since. She denies melena, current hematochezia, or hematemesis. No complaints of nausea vomiting or abdominal pain. She also denies unintentional weight loss. Stool for occult blood was positive. Patient previously had an EGD and colonoscopy in 2018 showing internal hemorrhoids colon polyps as well as moderate distal esophagitis with erosive gastritis and erosive duodenitis currently she denies nonsteroidal inflammatory drug use. Plan with patient to repeat EGD colonoscopy reviewed risk/benefits of sedation and procedure patient and daughter who was at bedside verbalized understanding is agreeable. Review of Systems: A 12 system, review was conducted and is negative except as noted in the HPI or here. Past Medical History Home Meds Active Scripts Docusate Sodium* (Colace*) 100 Mg Capsule, 100 MG PO Q12H PRN for .CONSTIPATION, #60 CAP 2 Refills Prov:LEONOR GILRenard M. 10/02/18 Ferrous Sulfate* (Ferrous Sulfate*) 325 Mg Tabec, 325 MG PO TID, #90 TAB 2 Refills Prov:JEFFERYDARNELL M. 10/02/18 Reported Medications Ascorbic Acid* (Vitamin C* Chew) 125 Mg Tab.chew, 250 MG PO BID, TAB.CHEW 09/30/18 Methotrexate* (Methotrexate*) 2.5 Mg Tab, 15 MG PO Q SUNDAY, TAB 09/30/18 Folic Acid* (Folic Acid*) 1 Mg Tablet, 1 MG PO DAILY, TAB 09/30/18 Carvedilol* (Carvedilol*) 6.25 Mg Tablet, 6.25 MG PO BID, #60 TAB 09/30/18 Hydralazine Hcl* (Hydralazine Hcl*) 25 Mg Tab, 25 MG PO BID, #60 TAB 09/30/18 Atorvastatin Calcium* (Atorvastatin Calcium*) 20 Mg Tablet, 20 MG PO QHS, #30 TAB 09/30/18 Amlodipine Besylate* (Amlodipine Besylate*) 10 Mg Tablet, 10 MG PO DAILY, #30 TAB 09/30/18 Levothyroxine Sodium* (Levothyroxine Sodium*) 25 Mcg Tablet, 25 MCG PO BEFORE BREAKFAST, #30 TAB 09/30/18 Cyanocobalamin (Vitamin B-12) (Vitamin B-12) 1,000 Mcg Capsule, 1000 MCG PO DAILY, CAP 09/30/18 Discontinued Scripts Potassium Chloride* (Potassium Chloride*) 20 Meq Tablet.er, 20 MEQ PO DAILY, #30 TAB.SA Prov:LUIS A GILSAI Corrales. 10/02/18 Furosemide* (Furosemide*) 40 Mg Tablet, 40 MG PO DAILY, #30 TAB Prov:LUIS A GILSAI Antoni. 10/02/18 Medications Current Medications Atorvastatin Calcium (Lipitor) 20 mg QHS PO ; Start 12/02/18 at 21:00 Carvedilol (Coreg) 6.25 mg BID PO ; Start 12/02/18 at 21:00 Levothyroxine Sodium (Synthroid) 25 mcg BEFORE BREAKFAST PO ; Start 12/03/18 at 07:00 IV Flush (NS 3 ml) 3 ml PER PROTOCOL IV ; Start 12/02/18 at 12:30 Ondansetron HCl (Zofran Inj) 4 mg Q6H PRN IV NAUSEA/VOMITING; Start 12/02/18 at 12:30 Acetaminophen (Tylenol Tab) 650 mg Q6H PRN PO .PAIN 1-3 OR TEMP; Start 12/02/18 at 12:30 Pantoprazole (Protonix Iv) 40 mg BID IV ; Start 12/02/18 at 21:00 Furosemide (Lasix) 20 mg ONCE IV ; Start 12/02/18 at 12:30; Stop 12/03/18 at 12:29 Furosemide (Lasix) 20 mg DAILY IV ; Start 12/03/18 at 09:00 Hydralazine HCl (Apresoline) 50 mg BID PO ; Start 12/02/18 at 21:00 Clonidine (Catapres) 0.1 mg Q6H PRN PO sbp>170; Start 12/02/18 at 13:00 Ferric Sodium Gluconate Complex 125 mg/Sodium Chloride 100 ml @ 100 mls/hr DAILY@1300 IVPB ; Start 12/02/18 at 16:00; Stop 12/04/18 at 13:59 Allergies: Coded Allergies: No Known Allergy (Unverified , 12/02/18) Past Surgical History Past Surgical Hx: other Social History Smoking Status: Never smoker Exam/Review of Systems Exam Vitals Vital Signs Date Temp Pulse Resp B/P (MAP) Pulse Ox O2 O2 Flow FiO2 Time Delivery Rate 12/02/18 98.1 67 19 176/71 99 Nasal 1.0 12:10 (106) Cannula 12/02/18 28 09:10 Exam PHYSICAL EXAMINATION: GENERAL: Well developed, well nourished, alert & oriented x 3 SKIN: No lesions HEAD: Normocephalic, atraumatic, no tenderness. EYES: Pupils equal reactive to light and accommodation, full extraocular movements, sclera clear, non-icteric, no discharge. EARS/NOSE AND THROAT: Ears normal, nose normal. NECK: Supple, no masses CHEST: Inspection within normal limits. CARDIOVASCULAR: Heart: Regular rate and rhythm RESPIRATORY: Lungs clear to auscultation GASTROINTESTINAL AND LIVER: Abdomen: Soft, non tenderness, non-distended, no hernias, no masses, no organomegaly, no ascites, no guarding, no rebound tenderness, normoactive bowel sounds. Rectal: Deferred. EXTREMITIES: No cyanosis, clubbing or edema. Results Result Diagram: 12/02/18 0801 12/02/18 0801 Results 24hrs Laboratory Tests Test 12/02/18 08:01 12/02/18 09:15 White Blood Count 7.7 Red Blood Count 2.30 L Hemoglobin 6.4 *L Hematocrit 22.5 L Mean Corpuscular Volume 97.8 Mean Corpuscular Hemoglobin 27.8 L Mean Corpuscular Hemoglobin Concent 28.4 L Red Cell Distribution Width 15.4 H Platelet Count 278 Mean Platelet Volume 9.1 Immature Granulocytes % 0.500 H Neutrophils % Segmented Neutrophils % (Manual) 68 Band Neutrophils % (Manual) 2 Lymphocytes % Lymphocytes % (Manual) 21 Monocytes % Monocytes % (Manual) 5 Eosinophils % Eosinophils % (Manual) 3 Basophils % Basophils % (Manual) 1 Nucleated Red Blood Cells % 0.0 Immature Granulocytes # 0.040 H Neutrophils # Neutrophils # (Manual) 5.2 Band Neutrophils # 0.1 Lymphocytes (Manual) 1.6 Lymphocytes # Monocytes # Monocytes # (Manual) 0.3 Eosinophils # Basophils # Basophils # (Manual) 0.0 Nucleated Red Blood Cells # Pathologist Review (Hematology) YES Platelet Estimate NORMAL Giant Platelets 1 H Polychromasia 3+ Hypochromasia 1+ Anisocytosis 1+ Macrocytosis 1+ Prothrombin Time 13.3 Prothrombin Time Ratio 1.0 INR International Normalized Ratio 1.00 Activated Partial Thromboplast Time 29.4 Urine Color STRAW Urine Clarity CLEAR Urine pH 6.0 Urine Specific [place] 1.006 Urine Ketones NEGATIVE Urine Nitrite NEGATIVE Urine Bilirubin NEGATIVE Urine Urobilinogen NEGATIVE Urine Leukocyte Esterase NEGATIVE Urine Hemoglobin NEGATIVE Urine Glucose NEGATIVE Urine Total Protein NEGATIVE Sodium Level 140 Potassium Level 4.1 Chloride Level 104 Carbon Dioxide Level 26 Anion Gap 10 Blood Urea Nitrogen 13 Creatinine 1.12 H Est Glomerular Filtrat Rate mL/min Glucose Level 141 Calcium Level 9.1 Iron Level 27 L Total Iron Binding Capacity 396 Percent Iron Saturation 7 L Ferritin 11.2 Total Bilirubin 0.3 Direct Bilirubin 0.00 Indirect Bilirubin 0.3 Aspartate Amino Transf (AST/SGOT) 25 Alanine Aminotransferase (ALT/SGPT) 17 Alkaline Phosphatase 101 Lactate Dehydrogenase 530 Creatine Kinase 105 Creatine Kinase Index 1.9 Creatinine Kinase MB (Mass) 1.96 Troponin I < 0.012 B-Type Natriuretic Peptide 491 H Total Protein 7.1 Albumin 3.7 Globulin 3.40 H Albumin/Globulin Ratio 1.08 Stool Occult Blood POSITIVE Medications Medication Current Medications Atorvastatin Calcium (Lipitor) 20 mg QHS PO ; Start 12/02/18 at 21:00 Carvedilol (Coreg) 6.25 mg BID PO ; Start 12/02/18 at 21:00 Levothyroxine Sodium (Synthroid) 25 mcg BEFORE BREAKFAST PO ; Start 7/16/19 at 07:00 IV Flush (NS 3 ml) 3 ml PER PROTOCOL IV ; Start 12/02/18 at 12:30 Ondansetron HCl (Zofran Inj) 4 mg Q6H PRN IV NAUSEA/VOMITING; Start 12/02/18 at 12:30 Acetaminophen (Tylenol Tab) 650 mg Q6H PRN PO .PAIN 1-3 OR TEMP; Start 12/02/18 at 12:30 Pantoprazole (Protonix Iv) 40 mg BID IV ; Start 12/02/18 at 21:00 Furosemide (Lasix) 20 mg ONCE IV ; Start 12/02/18 at 12:30; Stop 12/03/18 at 12:29 Furosemide (Lasix) 20 mg DAILY IV ; Start 12/03/18 at 09:00 Hydralazine HCl (Apresoline) 50 mg BID PO ; Start 12/02/18 at 21:00 Clonidine (Catapres) 0.1 mg Q6H PRN PO sbp>170; Start 12/02/18 at 13:00 Ferric Sodium Gluconate Complex 125 mg/Sodium Chloride 100 ml @ 100 mls/hr DAILY@1300 IVPB ; Start 12/02/18 at 16:00; Stop 12/04/18 at 13:59 CHAO DIAZ Dec 02, 2018 14:55
[2018-12-02 15:14] VITALS: BP 154/67; PULSE 59; RESP 19
[2018-12-02] MEDS ORDERED: BISACODYL (EC) 5 MG TAB PO ONE (15:30)
--- NOTE | 2018-12-02 16:47 | CONS ---
DATE OF ADMISSION: 12/02/2018 DATE OF CONSULTATION: 12/02/2018 REASON FOR CONSULTATION: Shortness of breath, congestive heart failure. REFERRING PHYSICIAN: Evelin Gavin NP, hospitalist service. HISTORY OF PRESENT ILLNESS: The patient is a 73-year-old female with a history of hypertension, par oxysmal atrial fibrillation, rheumatoid arthritis, congestive heart failure with preserved EF by echo 09/2018, hypothyroidism, diabetes mellitus, who presents with worsening dyspnea on exertion with kiran ited mobility and a possible melenotic stools. The patient denies any chest pain, dizziness, syncope . Initially upon arrival in the emergency department, temperature 98.3, blood pressure 184/66, pulse 72, respiratory rate 19, satting 92%. The patient's labs showed white count 7.7, hemoglobin 6.4, pl atelet count 278. Sodium 140, potassium 4.1, creatinine 1.1, BUN 13. BNP of 491. Troponin negative . INR of 1.0. UA negative. The patient underwent a chest x-ray revealing cardiomegaly with hilar v ascular and interstitial congestion. The patient's electrocardiogram revealed normal sinus rhythm, r ate of 67, normal axis, normal intervals nonspecific ST changes. The patient was admitted to the tremayne or and since admit to floor, the monitor revealing sinus rhythm, no significant arrhythmias or pauses . PAST MEDICAL HISTORY: As above in HPI. MEDICATIONS CURRENTLY IN HOSPITAL: 1. Zofran. 2. Tylenol. MEDICATIONS PRIOR TO ADMIT: 1. Methotrexate. 2. Ferrous sulfate. 3. Norvasc 10 mg daily. 4. Lipitor 10 mgs at bedtime. 5. Carvedilol 6.25 mg p.o. b.i.d. 6. Hydralazine 20 mg daily. 7. Colace. 8. Synthroid. 9. Vitamin C. 10. Vitamin B12. 11. Folic acid. ALLERGIES: NO KNOWN DRUG ALLERGIES. SOCIAL HISTORY: No current tobacco, ETOH or illicit drug use. FAMILY HISTORY: No history of sudden cardiac or early CAD. REVIEW OF SYSTEMS: As above in HPI. CONSTITUTIONAL: No fevers, chills. PULMONARY: Shortness of breath. CARDIOVASCULAR: Congestive heart failure, paroxysmal atrial fibrillation. GASTROINTESTINAL: No vomiting. GENITOURINARY: No renal failure. PSYCHIATRIC: Will come back to psych history. NEUROLOGIC: No documented history of CVA. PHYSICAL EXAMINATION VITAL SIGNS: Temperature of 98.1, blood pressure most recently 176/71, pulse 67, respiratory rate 18 , satting 98%. GENERAL: The patient is alert, awake, no acute distress. NECK: JVP approximately 8 to 9 cm of water. CHEST: Fair air movement throughout. HEART: Regular rate and rhythm. Normal S1, S2, I/ systolic murmur, nondisplaced PMI. ABDOMEN: Positive bowel sounds, soft. EXTREMITIES: No edema, 1+ pulses bilateral posterior tibial. LABORATORY DATA: As above in HPI. No further labs for my review at this time. IMAGING STUDIES: As in HPI. No further imaging studies for my review at this time. ECG: As in HPI. No further electrograms for my review at this time. IMPRESSION: 1. Congestive heart failure, diastolic, acute on chronic by most recent echo in September 2018. 2. Abnormal electrocardiogram with nonspecific ST-T abnormalities in the setting of severe anemia, a ssess for acute coronary syndrome provoked. 3. Hypertension, uncontrolled in the setting of holding antihypertensives and possible gastrointesti nal bleed. 4. History of paroxysmal atrial fibrillation, not currently on systemic anticoagulation, in sinus r hythm at this time. 5. Dyslipidemia. 6. Hypothyroidism. RECOMMENDATIONS: 1. At this time, we would maintain patient on telemetry monitoring to follow rhythm and rate control closely. 2. We would check serial EKGs, assess for ongoing changes, EKG in the morning, EKG for any further chest pain or change in rhythm. 3. Continue the patient's current carvedilol and hydralazine, following blood pressure closely 4. C ontinue the patient's current statin therapy and adjust it according to a fasting lipid panel to be c hecked. 5. Will give patient Lasix diuresis and standing, transfuse packed RBCs as necessary. 6. Complete the patient's myocardial infarction protocol to ensure the patient's EKG abnormalities a re chronic in nature and not due to any acute coronary syndromes. 7. Check a TSH to be sure subclinical hyperthyroid is not contributing to any bouts of possible paro xysmal atrial fibrillation. 8. Transfuse packed RBCs as necessary with Lasix in between units. 9. Would follow hemoglobin closely with pending GI evaluation given anemia and guaiac-positive stool s. Thank you for allowing me to take part in the care of this patient. I will continue to follow very c losely with you with recommendations to be made as the patient progresses through the inpatient hospi zuly clinical course. Dictated By: MIGUE MCGOVERN/PETRA Conf#: [id number] DID#: [id number] CC: EVELIN GAVIN COMPUTER VIDEO GAME DESIGNER; KATY MUNGUIA MD;*EndCC*
[2018-12-02] MEDS ORDERED: MAGNESIUM CITRATE 300 ML BTL PO ONE (17:30)
[2018-12-02] MEDS: SOD FERRIC GLUC COMPLX 125 MG in SOD CHLORIDE 0.9% 100 ML IVPB SCH (18:09)
[2018-12-02] MEDS ORDERED: POLYETHYLENE GLYCOL 3350 119 GM POWDER PO ONE (18:30)
[2018-12-02 19:52] VITALS: BP 165/77; PULSE 65; RESP 20
[2018-12-02] MEDS: PANTOPRAZOLE 40 MG INJ IV SCH (20:56)
[2018-12-02] MEDS: ATORVASTATIN 20 MG TAB PO SCH (20:57)
[2018-12-03] VITALS (13 sets, daily range): BP systolic 115–173; BP diastolic 33–79; PULSE 56–78; RESP 17–39
[2018-12-03] MEDS ORDERED: POLYETHYLENE GLYCOL 3350 119 GM POWDER PO ONE (06:00)
[2018-12-03] MEDS: LEVOTHYROXINE 25 MCG TAB PO SCH (06:14)
[2018-12-03] MEDS ORDERED: BISACODYL (EC) 5 MG TAB PO ONE (08:00)
[2018-12-03] MEDS: PANTOPRAZOLE 40 MG INJ IV SCH ×2 (08:40→20:34)
[2018-12-03] MEDS: FUROSEMIDE 20 MG INJ IV SCH (08:41)
--- NOTE | 2018-12-03 10:52 | PN ---
Date/Time of Note Date/Time of Note DATE: 12/03/18 TIME: 10:48 Assessment/Plan VTE Prophylaxis Risk score (from Nsg)>0 risk: 3 SCD applied (from Ns): Yes Pharmacological prophylaxis: NA/contraindicated Pharm contraindication: bleeding Lines/Catheters IV Catheter Type (from Nrs): Saline Lock Assessment/Plan Hospital Course SUBJECTIVE:no acute episodes, no n/v/abd pain. OBJECTIVE: Vital signs-see below PHYSICAL EXAM: Constitutional: Adequately built,not in acute distress. HEENT: Head atraumatic and normocephalic. Eyes: Extraocular muscles intact. Anicteric sclerae. Pupils equal bilaterally, reactive to light. NECK: Supple without lymph node. CHEST: Diminished bibasilar.Clear and good breath sounds equally. No wheezing. No rhonchi. HEART: S1, S2. Regular rate and rhythm. ABDOMEN: Soft/non tender with no rebound tenderness. Bowel sounds were present. EXTREMITIES: Trace edema on RLE. No cyanosis, clubbing . NEUROLOGIC: Alert and oriented x3. No focal deficit. No sensory deficit. PSYCHOSOCIAL: No signs of depression. INTEGUMENTARY: No open wounds. ASSESSMENT AND PLAN:73 yo M w/htn,dlp,RA here w/worsening SOB,found to have severe anemia with positive stool OB Acute GI bleed -plan for EGD/C-scope today -PPI prophylaxis Severe acute blood loss anemia secondary to GI bleed -s/p 2 PRBS->HH stbale -cont.IV Ferrlecitx3 doses,will switch to po afterwords Mild Acute kidney injury, likely secondary to hemodynamics -renal us to r/o CKD -Avoid nephrotoxins -Monitor renal function closely while receiving Lasix Acute on chronic diastolic HF -clinically stable -Preserved EF: TTE 10/06 -Cot.bb/spot diuresis Hypertension -stable -cont.bb/hydralazine Dyslipidemia -on statin Rheumatoid arthritis -Supportive care. Pain control Hypothyroidism -on Synthroid DVT prophylaxis: SCDs PUD prophylaxis: PPI Dispo:f/u EGD findings. Patient was seen in collaboration with Dr. Bains. Result Diagram: 12/03/18 0517 12/03/18 0517 Results 24hrs Laboratory Tests Test 12/02/18 14:51 12/02/18 22:14 12/03/18 05:17 Creatine Kinase 114 133 Creatine Kinase Index 1.7 1.6 Creatinine Kinase MB (Mass) 1.94 2.09 Troponin I < 0.012 < 0.012 < 0.012 B-Type Natriuretic Peptide 609 H Carcinoembryonic Antigen 1.0 Thyroid Stimulating Hormone (TSH) 3.170 White Blood Count 9.3 # Red Blood Count 3.46 #L Hemoglobin 9.8 #L Hematocrit 31.9 #L Mean Corpuscular Volume 92.2 Mean Corpuscular Hemoglobin 28.3 L Mean Corpuscular Hemoglobin Concent 30.7 L Red Cell Distribution Width 15.9 H Platelet Count 284 Mean Platelet Volume 9.1 Immature Granulocytes % 0.500 H Neutrophils % 75.9 Lymphocytes % 14.0 L Monocytes % 8.0 Eosinophils % 1.1 Basophils % 0.5 Nucleated Red Blood Cells % 0.3 H Immature Granulocytes # 0.050 H Neutrophils # 7.1 Lymphocytes # 1.3 Monocytes # 0.8 Eosinophils # 0.1 Basophils # 0.1 Nucleated Red Blood Cells # 0.0 Sodium Level 141 Potassium Level 3.4 L Chloride Level 102 Carbon Dioxide Level 31 Anion Gap 8 Blood Urea Nitrogen 15 Creatinine 1.25 H Est Glomerular Filtrat Rate mL/min Glucose Level 103 Hemoglobin A1c 5.1 Calcium Level 9.1 Phosphorus Level 5.3 H Magnesium Level 2.3 Total Bilirubin 1.0 Direct Bilirubin 0.00 Indirect Bilirubin 1.0 Aspartate Amino Transf (AST/SGOT) 27 Alanine Aminotransferase (ALT/SGPT) 18 Alkaline Phosphatase 105 Total Protein 7.1 Albumin 3.7 Globulin 3.40 H Albumin/Globulin Ratio 1.08 Exam/Review of Systems Exam Vitals Vital Signs Date Temp Pulse Resp B/P (MAP) Pulse Ox O2 O2 Flow FiO2 Time Delivery Rate 12/03/18 98.2 67 20 123/57 97 Room Air 07:27 (79) 12/02/18 2.0 15:14 12/02/18 28 09:10 Intake and Output 12/02/18 12/02/18 12/03/18 1515:00 23:00 07:00 IntakeIntake Total 920 ml 1340 ml BalanceBalance 920 ml 1340 ml Results Results 24hrs Laboratory Tests Test 12/02/18 14:51 12/02/18 22:14 12/03/18 05:17 Creatine Kinase 114 133 Creatine Kinase Index 1.7 1.6 Creatinine Kinase MB (Mass) 1.94 2.09 Troponin I < 0.012 < 0.012 < 0.012 B-Type Natriuretic Peptide 609 H Carcinoembryonic Antigen 1.0 Thyroid Stimulating Hormone (TSH) 3.170 White Blood Count 9.3 # Red Blood Count 3.46 #L Hemoglobin 9.8 #L Hematocrit 31.9 #L Mean Corpuscular Volume 92.2 Mean Corpuscular Hemoglobin 28.3 L Mean Corpuscular Hemoglobin Concent 30.7 L Red Cell Distribution Width 15.9 H Platelet Count 284 Mean Platelet Volume 9.1 Immature Granulocytes % 0.500 H Neutrophils % 75.9 Lymphocytes % 14.0 L Monocytes % 8.0 Eosinophils % 1.1 Basophils % 0.5 Nucleated Red Blood Cells % 0.3 H Immature Granulocytes # 0.050 H Neutrophils # 7.1 Lymphocytes # 1.3 Monocytes # 0.8 Eosinophils # 0.1 Basophils # 0.1 Nucleated Red Blood Cells # 0.0 Sodium Level 141 Potassium Level 3.4 L Chloride Level 102 Carbon Dioxide Level 31 Anion Gap 8 Blood Urea Nitrogen 15 Creatinine 1.25 H Est Glomerular Filtrat Rate mL/min Glucose Level 103 Hemoglobin A1c 5.1 Calcium Level 9.1 Phosphorus Level 5.3 H Magnesium Level 2.3 Total Bilirubin 1.0 Direct Bilirubin 0.00 Indirect Bilirubin 1.0 Aspartate Amino Transf (AST/SGOT) 27 Alanine Aminotransferase (ALT/SGPT) 18 Alkaline Phosphatase 105 Total Protein 7.1 Albumin 3.7 Globulin 3.40 H Albumin/Globulin Ratio 1.08 Medications Medication Current Medications Atorvastatin Calcium (Lipitor) 20 mg QHS PO Last administered on 12/02/18at 20:57; Admin Dose 20 MG; Start 12/02/18 at 21:00 Carvedilol (Coreg) 6.25 mg BID PO Last administered on 12/03/18at 08:42; Admin Dose 6.25 MG; Start 12/02/18 at 21:00 Levothyroxine Sodium (Synthroid) 25 mcg BEFORE BREAKFAST PO Last administered on 12/03/18at 06:14; Admin Dose 25 MCG; Start 12/03/18 at 07:00 IV Flush (NS 3 ml) 3 ml PER PROTOCOL IV ; Start 12/02/18 at 12:30 Ondansetron HCl (Zofran Inj) 4 mg Q6H PRN IV NAUSEA/VOMITING; Start 12/02/18 at 12:30 Acetaminophen (Tylenol Tab) 650 mg Q6H PRN PO .PAIN 1-3 OR TEMP; Start 12/02/18 at 12:30 Pantoprazole (Protonix Iv) 40 mg BID IV Last administered on 12/03/18 08:40; Admin Dose 40 MG; Start 12/02/18 at 21:00 Furosemide (Lasix) 20 mg ONCE IV Last administered on 12/02/18at 17:59; Admin Dose 20 MG; Start 12/02/18 at 12:30; Stop 12/03/18 at 12:29 Furosemide (Lasix) 20 mg DAILY IV Last administered on 12/03/18 08:41; Admin Dose 20 MG; Start 12/03/18 at 09:00 Hydralazine HCl (Apresoline) 50 mg BID PO Last administered on 12/03/18 08:42; Admin Dose 50 MG; Start 12/02/18 at 21:00 Clonidine (Catapres) 0.1 mg Q6H PRN PO sbp>170 Last administered on 12/03/18at 00:40; Admin Dose 0.1 MG; Start 12/02/18 at 13:00 Ferric Sodium Gluconate Complex 125 mg/Sodium Chloride 100 ml @ 100 mls/hr DAILY@1300 IVPB Last administered on 12/02/18at 18:09; Admin Dose 100 MLS/HR; Start 12/02/18 at 16:00; Stop 12/04/18 at 13:59 Potassium Chloride 100 ml @ 50 mls/hr ONCE ONCE IVPB ; Start 12/03/18 at 11:00; Stop 12/03/18 at 12:59 LEVY GAVIN V. [employer] Dec 03, 2018 10:52
[2018-12-03] MEDS ORDERED: POTASSIUM CHLORIDE 100 ML IVPB ONE (11:00)
[2018-12-03] MEDS: SOD FERRIC GLUC COMPLX 125 MG in SOD CHLORIDE 0.9% 100 ML IVPB SCH (12:50)
--- NOTE | 2018-12-03 14:04 | CONS ---
Consult Date/Type/Reason Admit Date/Time Dec 02, 2018 at 09:37 Initial Consult Date 12/02/18 Date/Time of Note DATE: 12/03/18 TIME: 14:01 Subjective NO acute events - pt stable - denies CP - r/o TN - feels better now. ROS: No fever, no chills, no nausea, no vomiting, no diarrhea/constipation No recent weight changes No chest pain, no PND, no orthopnea No dizziness, blurred vision No thirst, no heat or cold intolerance Objective Vitals Vital Signs Date Temp Pulse Resp B/P (MAP) Pulse Ox O2 O2 Flow FiO2 Time Delivery Rate 12/03/18 98.2 78 20 132/59 95 Room Air 11:20 (83) 12/02/18 2.0 15:14 12/02/18 28 09:10 Intake and Output 12/02/18 12/02/18 12/03/18 1515:00 23:00 07:00 IntakeIntake Total 920 ml 1340 ml BalanceBalance 920 ml 1340 ml Exam General: WN/WD/NAD, AOx 3 HEENT: Unicetric/atraumatic/EOMI (follows commands) NECK: JVD elevated, no thyromegaly Lymph: no lymphadenopathy HEART: regular with no S3, II/ systolic murmur at apex, PMI L LUNGS: Coarse sounds ABD: soft, NT, ND, +BS : Intact Neuro: non focal SKIN: chronic changes EXT: trace edema Results/Medications Result Diagram: 12/03/18 0517 12/03/18 0517 Results 24 hrs Laboratory Tests Test 12/02/18 14:51 12/02/18 22:14 12/03/18 05:17 Creatine Kinase 114 133 Creatine Kinase Index 1.7 1.6 Creatinine Kinase MB (Mass) 1.94 2.09 Troponin I < 0.012 < 0.012 < 0.012 B-Type Natriuretic Peptide 609 H Carcinoembryonic Antigen 1.0 Thyroid Stimulating Hormone (TSH) 3.170 White Blood Count 9.3 # Red Blood Count 3.46 #L Hemoglobin 9.8 #L Hematocrit 31.9 #L Mean Corpuscular Volume 92.2 Mean Corpuscular Hemoglobin 28.3 L Mean Corpuscular Hemoglobin Concent 30.7 L Red Cell Distribution Width 15.9 H Platelet Count 284 Mean Platelet Volume 9.1 Immature Granulocytes % 0.500 H Neutrophils % 75.9 Lymphocytes % 14.0 L Monocytes % 8.0 Eosinophils % 1.1 Basophils % 0.5 Nucleated Red Blood Cells % 0.3 H Immature Granulocytes # 0.050 H Neutrophils # 7.1 Lymphocytes # 1.3 Monocytes # 0.8 Eosinophils # 0.1 Basophils # 0.1 Nucleated Red Blood Cells # 0.0 Sodium Level 141 Potassium Level 3.4 L Chloride Level 102 Carbon Dioxide Level 31 Anion Gap 8 Blood Urea Nitrogen 15 Creatinine 1.25 H Est Glomerular Filtrat Rate mL/min Glucose Level 103 Hemoglobin A1c 5.1 Calcium Level 9.1 Phosphorus Level 5.3 H Magnesium Level 2.3 Total Bilirubin 1.0 Direct Bilirubin 0.00 Indirect Bilirubin 1.0 Aspartate Amino Transf (AST/SGOT) 27 Alanine Aminotransferase (ALT/SGPT) 18 Alkaline Phosphatase 105 Total Protein 7.1 Albumin 3.7 Globulin 3.40 H Albumin/Globulin Ratio 1.08 Home Meds Active Scripts Docusate Sodium* (Colace*) 100 Mg Capsule, 100 MG PO Q12H PRN for .CONSTIPATION, #60 CAP 2 Refills Prov:LEONOR GILRenard Corrales. 10/02/18 Ferrous Sulfate* (Ferrous Sulfate*) 325 Mg Tabec, 325 MG PO TID, #90 TAB 2 Refills Prov:LEONOR GILRenard . 10/02/18 Reported Medications Ascorbic Acid* (Vitamin C* Chew) 125 Mg Tab.chew, 250 MG PO BID, TAB.CHEW 09/30/18 Methotrexate* (Methotrexate*) 2.5 Mg Tab, 15 MG PO Q SUNDAY, TAB 09/30/18 Folic Acid* (Folic Acid*) 1 Mg Tablet, 1 MG PO DAILY, TAB 09/30/18 Carvedilol* (Carvedilol*) 6.25 Mg Tablet, 6.25 MG PO BID, #60 TAB 09/30/18 Hydralazine Hcl* (Hydralazine Hcl*) 25 Mg Tab, 25 MG PO BID, #60 TAB 09/30/18 Atorvastatin Calcium* (Atorvastatin Calcium*) 20 Mg Tablet, 20 MG PO QHS, #30 TAB 09/30/18 Amlodipine Besylate* (Amlodipine Besylate*) 10 Mg Tablet, 10 MG PO DAILY, #30 T AB 09/30/18 Levothyroxine Sodium* (Levothyroxine Sodium*) 25 Mcg Tablet, 25 MCG PO BEFORE BREAKFAST, #30 TAB 09/30/18 Cyanocobalamin (Vitamin B-12) (Vitamin B-12) 1,000 Mcg Capsule, 1000 MCG PO DAILY, CAP 09/30/18 Discontinued Scripts Potassium Chloride* (Potassium Chloride*) 20 Meq Tablet.er, 20 MEQ PO DAILY, #30 TAB.SA Prov:DARNELL GIL. 10/02/18 Furosemide* (Furosemide*) 40 Mg Tablet, 40 MG PO DAILY, #30 TAB Prov:DARNELL GIL M. 10/02/18 Medications Current Medications Atorvastatin Calcium (Lipitor) 20 mg QHS PO Last administered on 12/02/18at 20:57; Admin Dose 20 MG; Start 12/02/18 at 21:00 Carvedilol (Coreg) 6.25 mg BID PO Last administered on 12/03/18 08:42; Admin Dose 6.25 MG; Start 12/02/18 at 21:00 Levothyroxine Sodium (Synthroid) 25 mcg BEFORE BREAKFAST PO Last administered on 12/03/18at 06:14; Admin Dose 25 MCG; Start 12/03/18 at 07:00 IV Flush (NS 3 ml) 3 ml PER PROTOCOL IV ; Start 12/02/18 at 12:30 Ondansetron HCl (Zofran Inj) 4 mg Q6H PRN IV NAUSEA/VOMITING; Start 12/02/18 at 12:30 Acetaminophen (Tylenol Tab) 650 mg Q6H PRN PO .PAIN 1-3 OR TEMP; Start 12/02/18 at 12:30 Pantoprazole (Protonix Iv) 40 mg BID IV Last administered on 12/03/18 08:40; Admin Dose 40 MG; Start 12/02/18 at 21:00 Furosemide (Lasix) 20 mg DAILY IV Last administered on 12/03/18 08:41; Admin Dose 20 MG; Start 12/03/18 at 09:00 Hydralazine HCl (Apresoline) 50 mg BID PO Last administered on 12/03/18 08:42; Admin Dose 50 MG; Start 12/02/18 at 21:00 Clonidine (Catapres) 0.1 mg Q6H PRN PO sbp>170 Last administered on 12/03/18at 00:40; Admin Dose 0.1 MG; Start 12/02/18 at 13:00 Ferric Sodium Gluconate Complex 125 mg/Sodium Chloride 100 ml @ 100 mls/hr DAILY@1300 IVPB Last administered on 12/03/18at 12:50; Admin Dose 100 MLS/HR; Start 12/02/18 at 16:00; Stop 12/04/18 at 13:59 Assessment/Plan Hospital Course (Demo Recall) 1. Congestive heart failure, diastolic, acute on chronic by most recent echo in September 2018 - in good fluid status now - will monitor clinically now. 2. Abnormal electrocardiogram with nonspecific ST-T abnormalities in the setting of severe anemia, assess for acute coronary syndrome provoked. R/O TN. 3. Hypertension, uncontrolled in the setting of holding antihypertensives and possible gastrointestinal bleed - H/H stable at 9.8. 4. History of paroxysmal atrial fibrillation, not currently on systemic anticoagulation, in sinus rhythm at this time - if H/H Ok - consider full anti-coagulation. 5. Dyslipidemia. 6. Hypothyroidism. MIKE FERNANDEZ MD Dec 03, 2018 14:04
--- NOTE | 2018-12-03 17:19 | PREAC ---
Date/Time of Note Date/Time of Note DATE: 12/03/18 TIME: 17:18 Anesthesia Eval and Record Evaluation Time Pre-Procedure Interview DATE: 12/03/18 TIME: 17:18 Age 73 Sex female NPO: 8 hrs Preoperative diagnosis Acute GI bleed Planned procedure EGD / Colonoscopy Past Medical History Past Medical History: Includes Cardio: HTN, Dyslipidemia, CHF (EF preserved) Endo: Hypothyroid Musculoskeletal: Rheumatoid arthritis Renal: ELINA GI: Obesity Surgery & Anesthesia Issues No known issue Meds Anticoagulation: No Beta Delmy within 24 hr: No Reason Beta Delmy not given: Pt. not on B-Delmy Active Scripts Docusate Sodium* (Colace*) 100 Mg Capsule, 100 MG PO Q12H PRN for .CONSTIPATION, #60 CAP 2 Refills Prov:JEFFERYLUIS A McmullenELIASO M. 10/02/18 Ferrous Sulfate* (Ferrous Sulfate*) 325 Mg Tabec, 325 MG PO TID, #90 TAB 2 Refills Prov:LUIS A GILELIASO M. 10/02/18 Reported Medications Ascorbic Acid* (Vitamin C* Chew) 125 Mg Tab.chew, 250 MG PO BID, TAB.CHEW 09/30/18 Methotrexate* (Methotrexate*) 2.5 Mg Tab, 15 MG PO Q SUNDAY, TAB 09/30/18 Folic Acid* (Folic Acid*) 1 Mg Tablet, 1 MG PO DAILY, TAB 09/30/18 Carvedilol* (Carvedilol*) 6.25 Mg Tablet, 6.25 MG PO BID, #60 TAB 09/30/18 Hydralazine Hcl* (Hydralazine Hcl*) 25 Mg Tab, 25 MG PO BID, #60 TAB 09/30/18 Atorvastatin Calcium* (Atorvastatin Calcium*) 20 Mg Tablet, 20 MG PO QHS, #30 TAB 09/30/18 Amlodipine Besylate* (Amlodipine Besylate*) 10 Mg Tablet, 10 MG PO DAILY, #30 TAB 09/30/18 Levothyroxine Sodium* (Levothyroxine Sodium*) 25 Mcg Tablet, 25 MCG PO BEFORE BREAKFAST, #30 TAB 09/30/18 Cyanocobalamin (Vitamin B-12) (Vitamin B-12) 1,000 Mcg Capsule, 1000 MCG PO DAILY, CAP 09/30/18 Discontinued Scripts Potassium Chloride* (Potassium Chloride*) 20 Meq Tablet.er, 20 MEQ PO DAILY, #30 TAB.SA Prov:DARNELL GIL. 10/02/18 Furosemide* (Furosemide*) 40 Mg Tablet, 40 MG PO DAILY, #30 TAB Prov:DARNELL GIL. 10/02/18 Current Medications Atorvastatin Calcium (Lipitor) 20 mg QHS PO Last administered on 12/02/18at 20:57; Admin Dose 20 MG; Start 12/02/18 at 21:00 Carvedilol (Coreg) 6.25 mg BID PO Last administered on 12/03/18 08:42; Admin Dose 6.25 MG; Start 12/02/18 at 21:00 Levothyroxine Sodium (Synthroid) 25 mcg BEFORE BREAKFAST PO Last administered on 12/03/18 06:14; Admin Dose 25 MCG; Start 12/03/18 at 07:00 IV Flush (NS 3 ml) 3 ml PER PROTOCOL IV ; Start 12/02/18 at 12:30 Ondansetron HCl (Zofran Inj) 4 mg Q6H PRN IV NAUSEA/VOMITING; Start 12/02/18 at 12:30 Acetaminophen (Tylenol Tab) 650 mg Q6H PRN PO .PAIN 1-3 OR TEMP; Start 12/02/18 at 12:30 Pantoprazole (Protonix Iv) 40 mg BID IV Last administered on 12/03/18 08:40; Admin Dose 40 MG; Start 12/02/18 at 21:00 Furosemide (Lasix) 20 mg DAILY IV Last administered on 12/03/18 08:41; Admin Dose 20 MG; Start 12/03/18 at 09:00 Hydralazine HCl (Apresoline) 50 mg BID PO Last administered on 12/03/18 08:42; Admin Dose 50 MG; Start 12/02/18 at 21:00 Clonidine (Catapres) 0.1 mg Q6H PRN PO sbp>170 Last administered on 12/03/18at 00:40; Admin Dose 0.1 MG; Start 12/02/18 at 13:00 Ferric Sodium Gluconate Complex 125 mg/Sodium Chloride 100 ml @ 100 mls/hr DAILY@1300 IVPB Last administered on 12/03/18at 12:50; Admin Dose 100 MLS/HR; Start 12/02/18 at 16:00; Stop 12/04/18 at 13:59 Meds reviewed: Yes Allergies Coded Allergies: No Known Allergy (Unverified , 12/02/18) Allergies Reviewed: Yes Labs/Studies Labs Reviewed: Reviewed by anesthesiologist Result Diagram: 12/03/18 0517 12/03/18 0517 Laboratory Tests 12/03/18 05:17 test: N/A Pre-procedure Exam Last vitals Vital Signs Date Temp Pulse Resp B/P (MAP) Pulse Ox O2 O2 Flow FiO2 Time Delivery Rate 12/03/18 98.4 67 20 125/64 95 Room Air 15:53 (84) 12/02/18 2.0 15:14 12/02/18 28 09:10 Airway: Adequate mouth opening Mallampati: Mallampati II Teeth: Normal Lung: Normal Heart: Normal ASA Physical Status ASA physical status: 3 Emergency: None Planned Anesthetic General/MAC: MAC Pre-operative Attestations Prior to commencing anesthesia and surgery, the patient was re-evaluated, there was verification of: *The patient's identity *The results of appropriate recent lab work and preoperative vital signs *The above evaluation not changing prior to induction *Anesthetic plan, risk benefits, alternative and complications discussed with patient/family; questions answered; patient/family understands, accepts and wishes to proceed. LUKE MURCIA Dec 03, 2018 17:19
[2018-12-03] MEDS ORDERED: PROPOFOL 40 ML ONE (18:10)
--- NOTE | 2018-12-03 18:32 | PAC ---
Date/Time of Note Date/Time of Note DATE: 12/03/18 TIME: 18:31 Post-Anesthesia Notes Post-Anesthesia Note Last documented vital signs Vital Signs Date Temp Pulse Resp B/P (MAP) Pulse Ox O2 O2 Flow FiO2 Time Delivery Rate 12/03/18 98.4 67 20 125/64 95 Room Air 15:53 (84) 12/02/18 2.0 15:14 12/02/18 28 09:10 Activity: WNL Respiratory function: WNL Cardiovascular function: WNL Mental status: Baseline Pain reasonably controlled: Yes Hydration appropriate: Yes Nausea/Vomiting absent: Yes HERBER VICTORIA MD Dec 03, 2018 18:32
[2018-12-03] MEDS: ATORVASTATIN 20 MG TAB PO SCH (20:33)
[2018-12-04 00:11] VITALS: BP 146/58; PULSE 101; RESP 18
[2018-12-04 04:00] VITALS: PULSE 68
[2018-12-04 04:27] VITALS: BP 130/57; PULSE 63; RESP 18
[2018-12-04] MEDS: LEVOTHYROXINE 25 MCG TAB PO SCH (06:01)
[2018-12-04 07:43] VITALS: BP 146/64; PULSE 66; RESP 20
[2018-12-04] MEDS: PANTOPRAZOLE 40 MG INJ IV SCH (08:15)
[2018-12-04] MEDS: FUROSEMIDE 20 MG INJ IV SCH (08:17)
--- NOTE | 2018-12-04 10:15 | PDOCDIS ---
Discharge Instructions CONDITION [id number] Patient Condition: [id number] Stable HOME CARE INSTRUCTIONS: [id number] Diet Instructions: [id number] Low Fat /Cholesterol [id number] Your diet recommendation is: [id number] high fiber FOLLOW UP/APPOINTMENTS Follow-up Plan Follow-up with primary care physician in 1 week. You will need to have a repeat colonoscopy in 5 years. Continue taking medications as prescribed. LEVY GAVIN NP Dec 04, 2018 10:15
[2018-12-04] MEDS ORDERED: HYDR-3671 PO (10:18)
[2018-12-04] MEDS ORDERED: FER325 PO (10:18)
[2018-12-04] MEDS ORDERED: PANT40TA3 PO (10:18)
[2018-12-04] MEDS ORDERED: AMLO-147 PO (10:18)
--- NOTE | 2018-12-04 10:24 | DS ---
Date/Time of Note Date/Time of Note DATE: 12/04/18 TIME: 10:22 Discharge Summary Admission/Discharge Info Admit Date/Time Dec 02, 2018 at 09:37 Discharge Date/Time Discharge Diagnosis Acute GI bleed with likely colon polyp. Status post polyp ablation. Severe acute blood loss anemia secondary to GI bleed.stable Severe gastritis/esophagitis Mild Acute kidney injury, likely secondary to GIB.stable Acute on chronic diastolic HF.stable Hypertension Dyslipidemia Rheumatoid arthritis Hypothyroidism Patient Condition: Stable Consults dr.suchov brown Procedures 12/03/2018: EGD: Severe gastritis/esophagitis 12/03/2018: Colonoscopy: 4 mm polyp in sigmoid colon. Status post ablation. Hx of Present Illness This is a 73-year-old female with a history of hypertension, prediabetes, hypothyroidism, iron deficient anemia, rheumatoid arthritis, dyslipidemia, paroxysmal atrial fibrillation, diastolic dysfunction, presented to the emergency room with 4-day duration of worsening weakness associated with progressive shortness of breath with activities and walking. Apparently, patient had noticed rectal bleeding around 3 weeks ago which stopped spontaneously. She also has intermittent swelling on her right lower extremity.Patient denied chest pain, palpitation, nausea, vomiting, abdominal pain, loss of consciousness, dizziness, headache, numbness, constipation, diarrhea, fever, chills or other constitutional symptoms. Denied weight loss or loss of appetite. In the emergency room, patient was noted with initial hemoglobin 6.4, hematocrit 22.5, creatinine 1.12. Patient stool occult blood was positive in the emergency room. Chest x-ray with cardiomegaly with hilar vascular and interstitial congestion. Patient was given a unit of PRBC in the emergency room and was admitted for further evaluation. Hospital Course 73 yo M w/htn,dlp,RA here w/worsening SOB,found to have severe anemia with positive stool OB. Patient was transfused 2 units of PRBC with stable H&H. She was also noted with iron deficiency for which she was given 3 doses of IV Ferrlecit. Patient was also noted with mild acute kidney injury most likely secondary to acute GI bleed and her creatinine remained stable without much fluctuations. Patient was also noted with mild diastolic heart failure exacerbation for which she was given support diuretics. She was continued on home antihypertensives. Patient underwent EGD/colonoscopy on 12/03/2018 which showed polyps which were ablated. She was recommended to take high-fiber diet. She was also noted with gastritis/esophagitis. Patient was then recommended to continue PPI regimen with screening colonoscopy in 5 years. At this time, patient is feeling back to baseline. She is very eager to be discharged. Her labs and vital signs stable. There is no heart failure exacerbation symptoms. Patient can be discharged with outpatient follow-up at this point. Approximately 60 m spent on coordinating the discharge on this patient. Patient was seen in collaboration with [facility] Active Scripts Pantoprazole* (Protonix*) 40 Mg Tablet.dr, 40 MG PO BID, #60 TAB Prov:GAVIN,LEVY V. SENIOR MEDICAL BILLING SPECIALIST 12/04/18 Hydralazine Hcl* (Hydralazine Hcl*) 25 Mg Tab, 50 MG PO BID, #90 TAB Prov:GAVIN,LEVY V. SENIOR MEDICAL BILLING SPECIALIST 12/04/18 Ferrous Sulfate* (Ferrous Sulfate*) 325 Mg Tabec, 325 MG PO TID, #90 TAB 2 Refills Prov:GAVINLEVY V. SENIOR MEDICAL BILLING SPECIALIST 12/04/18 Amlodipine Besylate* (Amlodipine Besylate*) 10 Mg Tablet, 5 MG PO DAILY, #30 TAB Prov:GAVIN,LEVY V. SENIOR MEDICAL BILLING SPECIALIST 12/04/18 Docusate Sodium* (Colace*) 100 Mg Capsule, 100 MG PO Q12H PRN for .CONSTIPATION, #60 CAP 2 Refills Prov:DARNELL GIL 10/02/18 Reported Medications Ascorbic Acid* (Vitamin C* Chew) 125 Mg Tab.chew, 250 MG PO BID, TAB.CHEW 09/30/18 Methotrexate* (Methotrexate*) 2.5 Mg Tab, 15 MG PO Q SUNDAY, TAB 09/30/18 Folic Acid* (Folic Acid*) 1 Mg Tablet, 1 MG PO DAILY, TAB 09/30/18 Carvedilol* (Carvedilol*) 6.25 Mg Tablet, 6.25 MG PO BID, #60 TAB 09/30/18 Atorvastatin Calcium* (Atorvastatin Calcium*) 20 Mg Tablet, 20 MG PO QHS, #30 TAB 09/30/18 Levothyroxine Sodium* (Levothyroxine Sodium*) 25 Mcg Tablet, 25 MCG PO BEFORE BREAKFAST, #30 TAB 09/30/18 Cyanocobalamin (Vitamin B-12) (Vitamin B-12) 1,000 Mcg Capsule, 1000 MCG PO DAILY, CAP 09/30/18 Discontinued Reported Medications Hydralazine Hcl* (Hydralazine Hcl*) 25 Mg Tab, 25 MG PO BID, #60 TAB 09/30/18 Discontinued Scripts Potassium Chloride* (Potassium Chloride*) 20 Meq Tablet.er, 20 MEQ PO DAILY, #30 TAB.SA Prov:JEFFERYDARNELL M. 10/02/18 Furosemide* (Furosemide*) 40 Mg Tablet, 40 MG PO DAILY, #30 TAB Prov:DARNELL GIL. 10/02/18 Follow-up Plan Follow-up with primary care physician in 1 week. You will need to have a repeat colonoscopy in 5 years. Continue taking medications as prescribed. Primary Care Provider [facility] LEVY Gonsalez NP Dec 04, 2018 10:24
[2018-12-04 11:10] VITALS: BP 134/61; PULSE 61; RESP 20
--- NOTE | 2018-12-04 13:11 | CONS ---
Assessment/Plan Assessment/Plan Hospital Course (Demo Recall) IMPRESSION: 1. Congestive heart failure, diastolic, acute on chronic by most recent echo in September 2018.-good volume status currently 2. Abnormal electrocardiogram with nonspecific ST-T abnormalities in the setting of severe anemia, assess for acute coronary syndrome provoked.-neg trop x 3 3. Hypertension, uncontrolled in the setting of holding antihypertensives and possible gastrointestinal bleed. 4. History of paroxysmal atrial fibrillation, not currently on systemic anticoagulation, in sinus rhythm at this time.-remains in SR 5. Dyslipidemia. 6. Hypothyroidism. 7. anemia/GIB- s/p endoscopy and transfusion Recc: -Tele -serial ecg's -Continue coreg/hydralazine -Contineu lasix but can change PO -OK for dc planning from cardiac standpoint Consultation Date/Type/Reason Admit Date/Time Dec 02, 2018 at 09:37 Initial Consult Date 12/02/18 Type of Consult Cardiology Reason for Consultation CHF Requesting Provider: LEVY GAVIN NP Date/Time of Note DATE: 12/04/18 TIME: 13:06 Exam/Review of Systems Vital Signs Vitals Vital Signs Date Temp Pulse Resp B/P (MAP) Pulse Ox O2 O2 Flow FiO2 Time Delivery Rate 12/04/18 98.5 61 20 134/61 92 Room Air 11:10 (85) 12/03/18 3.0 18:41 12/02/18 28 09:10 Exam Exam Review of Systems: CONSTITUTIONAL: No fevers, chills. PULMONARY: No sob CARDIOVASCULAR: No chest pain/palpitations GASTROINTESTINAL: No nausea/vomiting. GENITOURINARY: No hematuria/dysuria. MUSCULOSKELETAL: No myagias/arthalgias. PSYCHIATRIC: The patient denies depression. NEUROLOGIC: No weakness Constitutional: alert Psych: no complaints Head: normocephalic ENMT: mucosa pink and moist Neck: supple, jvd (9 cm water) Respiratory: diminished breath sounds Cardiovascular: regular rate and rhythm Gastrointestinal: soft, non-tender Musculoskeletal: muscle tone (normal) Extremities: edema (none) Neurological: other (No focal defiicts) Labs Result Diagram: 12/03/1851612/03/18516 Medications Medications Current Medications Atorvastatin Calcium (Lipitor) 20 mg QHS PO Last administered on 12/03/18at 20:33; Admin Dose 20 MG; Start 12/02/18 at 21:00 Carvedilol (Coreg) 6.25 mg BID PO Last administered on 12/04/18 08:18; Admin Dose 6.25 MG; Start 12/02/18 at 21:00 Levothyroxine Sodium (Synthroid) 25 mcg BEFORE BREAKFAST PO Last administered on 12/04/18at 06:01; Admin Dose 25 MCG; Start 12/03/18 at 07:00 IV Flush (NS 3 ml) 3 ml PER PROTOCOL IV ; Start 12/02/18 at 12:30 Ondansetron HCl (Zofran Inj) 4 mg Q6H PRN IV NAUSEA/VOMITING; Start 12/02/18 at 12:30 Acetaminophen (Tylenol Tab) 650 mg Q6H PRN PO .PAIN 1-3 OR TEMP; Start 12/02/18 at 12:30 Pantoprazole (Protonix Iv) 40 mg BID IV Last administered on 12/04/18at 08:15; Admin Dose 40 MG; Start 12/02/18 at 21:00 Furosemide (Lasix) 20 mg DAILY IV Last administered on 12/04/18at 08:17; Admin Dose 20 MG; Start 12/03/18 at 09:00 Hydralazine HCl (Apresoline) 50 mg BID PO Last administered on 12/04/18 08:17; Admin Dose 50 MG; Start 12/02/18 at 21:00 Clonidine (Catapres) 0.1 mg Q6H PRN PO sbp>170 Last administered on 12/03/18at 00:40; Admin Dose 0.1 MG; Start 12/02/18 at 13:00 Ferric Sodium Gluconate Complex 125 mg/Sodium Chloride 100 ml @ 100 mls/hr DAILY@1300 IVPB Last administered on 12/03/18at 12:50; Admin Dose 100 MLS/HR; Start 12/02/18 at 16:00; Stop 12/04/18 at 13:59 MIGUE ARORA Dec 04, 2018 13:11
[2018-12-04] MEDS: SOD FERRIC GLUC COMPLX 125 MG in SOD CHLORIDE 0.9% 100 ML IVPB SCH (13:58)
[2018-12-04 15:17] VITALS: BP 112/53; PULSE 63; RESP 16
--- NOTE | 2018-12-07 16:14 | RADRPT ---
Vent Rate: 71 bpm RR Interval: 852 msec SD Interval: 175 msec QRS Duration: 89 msec QT Interval: 396 msec QTC Interval: 429 msec P-R-T [place]: 48 - 62 - 3 degrees Sinus rhythm...normal P axis, V-rate 50- 99 Electronically Signed By: Matt Rolle
== END 2018-12-04 19:20 | disposition home or self-care (01) | DRG 377 ==
LOC: E/R 07:34 → 6WM 09:37
PROVIDERS: ADMIT Internal Medicine; ATTEND Internal Medicine
PROC: 30233N1 Transfusion of Nonautologous Red Blood Cells into Peripheral Vein, Percutaneous Approach (ICD-10-PCS; 2018-12-02)
PROC: 0DBN8ZZ Excision of Sigmoid Colon, Via Natural or Artificial Opening Endoscopic (ICD-10-PCS; principal; 2018-12-03 19:30)
PROC: 0DB68ZX Excision of Stomach, Via Natural or Artificial Opening Endoscopic, Diagnostic (ICD-10-PCS; 2018-12-03 19:30)
DX: K92.2 Gastrointestinal hemorrhage, unspecified (principal); I50.33 Acute on chronic diastolic (congestive) heart failure; N17.9 Acute kidney failure, unspecified; I13.0 Hypertensive heart and chronic kidney disease with heart failure and stage 1 through stage 4 chronic kidney disease, or unspecified chronic kidney disease; D62 Acute posthemorrhagic anemia; D12.5 Benign neoplasm of sigmoid colon; K29.70 Gastritis, unspecified, without bleeding; E03.9 Hypothyroidism, unspecified; N18.9 Chronic kidney disease, unspecified; K64.8 Other hemorrhoids; M06.9 Rheumatoid arthritis, unspecified; E78.5 Hyperlipidemia, unspecified; J44.9 Chronic obstructive pulmonary disease, unspecified; I48.0 Paroxysmal atrial fibrillation; E11.22 Type 2 diabetes mellitus with diabetic chronic kidney disease; K20.9 Esophagitis, unspecified; K44.9 Diaphragmatic hernia without obstruction or gangrene
CPT/HCPCS: 36430; 71045; 76775; 80053; 81003; 82270; 82378; 82550; 82553; 82728; 83036; 83540; 83615; 83735; 83880; 84100; 84443; 84466; 84484; 85025; 85610; 85730; 86850; 86900; 86901; 86920; 88305; 88312; 93005; 94664; 96374; C9113; J0360; J1940; J2916; J3480; J7040; P9016

== ENCOUNTER 2018-12-18 10:59 | Emergency (ER) | payer MEDICARE, OTHER ==
[~2018-12-18] VITALS: Ht 152.4 cm; Wt 78.3 kg
[~2018-12-18 10:59] MED LIST changes: -FURO40TA4 PO; +LEVO750T25 PO; +PANT40TA3 PO; -POTA20TA96 PO
[2018-12-18 11:02] VITALS: Ht 152.4 cm; Wt 78.3 kg
--- NOTE | 2018-12-18 11:27 | ERD ---
ER Documentation Chief Complaint Chief Complaint cough, chest congestion x 5 days HPI Anemia 73-year-old female with history of CHF, atrial fibrillation, and hypothyroidism is here complaining of 2 days of flulike symptoms including chest congestion, mild cough, and chest pain. No palpitations or shortness of breath. No fever. Patient thinks it is secondary to having "gripe" and states does not feel like it is her heart. No nausea or vomiting or diarrhea. ROS All systems reviewed and are negative except as per history of present illness. Medications Home Meds Active Scripts Levofloxacin* (Levaquin*) 750 Mg Tablet, 750 MG PO DAILY for 5 Days, TAB Prov:RODRICK العراقي PA-C 12/18/18 Pantoprazole* (Protonix*) 40 Mg Tablet.dr, 40 MG PO BID, #60 TAB Prov:LEVY GAVIN NP 12/04/18 Hydralazine Hcl* (Hydralazine Hcl*) 25 Mg Tab, 50 MG PO BID, #90 TAB Prov:LEVY GAVIN V. [employer]EW[employer] MANAGER 12/04/18 Ferrous Sulfate* (Ferrous Sulfate*) 325 Mg Tabec, 325 MG PO TID, #90 TAB 2 Refills Prov:LEVY GAVIN V. [employer]EW[employer] MANAGER 12/04/18 Amlodipine Besylate* (Amlodipine Besylate*) 10 Mg Tablet, 5 MG PO DAILY, #30 TAB Prov:LEVY GAVIN V. [employer]EW[employer] MANAGER 12/04/18 Docusate Sodium* (Colace*) 100 Mg Capsule, 100 MG PO Q12H PRN for .CONSTIPATION, #60 CAP 2 Refills Prov:DARNELL GIL 10/02/18 Reported Medications Ascorbic Acid* (Vitamin C* Chew) 125 Mg Tab.chew, 250 MG PO BID, TAB.CHEW 09/30/18 Methotrexate* (Methotrexate*) 2.5 Mg Tab, 15 MG PO Q SUNDAY, TAB 09/30/18 Folic Acid* (Folic Acid*) 1 Mg Tablet, 1 MG PO DAILY, TAB 09/30/18 Carvedilol* (Carvedilol*) 6.25 Mg Tablet, 6.25 MG PO BID, #60 TAB 09/30/18 Atorvastatin Calcium* (Atorvastatin Calcium*) 20 Mg Tablet, 20 MG PO QHS, #30 TAB 09/30/18 Levothyroxine Sodium* (Levothyroxine Sodium*) 25 Mcg Tablet, 25 MCG PO BEFORE BR EAKFAST, #30 TAB 09/30/18 Cyanocobalamin (Vitamin B-12) (Vitamin B-12) 1,000 Mcg Capsule, 1000 MCG PO DAILY, CAP 09/30/18 Allergies Allergies: Coded Allergies: No Known Allergy (Unverified , 12/02/18) PMhx/Soc History of Surgery: Yes (hysterectomy ) Anesthesia Reaction: No Hx Neurological Disorder: No Hx Respiratory Disorders: No Hx Cardiac Disorders: Yes (HTN, CHF ) Hx Psychiatric Problems: No Hx Miscellaneous Medical Probl: Yes (Anemia ) Hx Alcohol Use: No Hx Substance Use: No Hx Tobacco Use: No FmHx Family History: No diabetes Physical Exam Vitals Vital Signs Date Temp Pulse Resp B/P (MAP) Pulse Ox O2 O2 Flow FiO2 Time Delivery Rate 12/18/18 98.4 81 24 170/74 94 11:02 (106) Physical Exam INITIAL VITAL SIGNS: Reviewed by me GENERAL: Awake, alert and oriented x 4, well appearing, nontoxic, speaking in full sentences. No acute distress HEAD: Atraumatic NECK: Supple. No masses. Full range of motion. No meningismus. No midline tenderness. EYES: EOMI. PERRL. THROAT: No tonilar erythema or edema. No exudates. Uvula midline. No kissing tonsils. RESPIRATORY: Clear to auscultation bilaterally. Symmetric chest wall rise. No wheezing or rales. No accessory muscle use. CV: Regular rate and rhythm. No murmurs, rubs, or gallops. ABDOMEN: Soft, non-distended. Nontender. Negative [place]. Negative [place] point tenderness. No CVA tenderness bilaterally. No guarding. No rebound. Result Diagram: 12/18/18 1218 12/18/18 1218 Results 24 hrs Laboratory Tests Test 12/18/18 12:18 White Blood Count 8.7 10^3/ul Red Blood Count 3.04 10^6/ul Hemoglobin 8.8 g/dl Hematocrit 28.5 % Mean Corpuscular Volume 93.8 fl Mean Corpuscular Hemoglobin 28.9 pg Mean Corpuscular Hemoglobin Concent 30.9 g/dl Red Cell Distribution Width 15.0 % Platelet Count 232 10^3/UL Mean Platelet Volume 9.8 fl Immature Granulocytes % 0.700 % Neutrophils % 70.0 % Lymphocytes % 16.4 % Monocytes % 7.8 % Eosinophils % 4.4 % Basophils % 0.7 % Nucleated Red Blood Cells % 0.0 /100WBC Immature Granulocytes # 0.060 10^3/ul Neutrophils # 6.1 10^3/ul Lymphocytes # 1.4 10^3/ul Monocytes # 0.7 10^3/ul Eosinophils # 0.4 10^3/ul Basophils # 0.1 10^3/ul Nucleated Red Blood Cells # 0.0 10^3/ul Sodium Level 142 mmol/L Potassium Level 4.7 mmol/L Chloride Level 108 mmol/L Carbon Dioxide Level 26 mmol/L Anion Gap 8 Blood Urea Nitrogen 13 mg/dl Creatinine 1.00 mg/dl Est Glomerular Filtrat Rate mL/min mL/min Glucose Level 93 mg/dl Calcium Level 9.1 mg/dl Troponin I < 0.012 ng/ml Procedures/MDM Patient is here stating that she has flulike symptoms, although she states she only has a mild cough and chest congestion. No fever. She is complaining of ch est discomfort. Reviewed the case with who recommended labs, including troponin, chest x-ray, and EKG. patient's hemoglobin today is 8.8. Chest x-ray shows There is likely a small left pleural effusion. There are bilateral lung base consolidations. There is scarring versus atelectasis of the right upper lung field. There are increased interstitial markings. There is likely COPD. I reviewed all lab findings and radiology findings with my supervising physician Dr. Lara who also looked at patient's previous labs and x-rays and decided the patient is suitable for outpatient management. Patient was discharged with Levaquin. Patient counseled regarding my diagnostic impression and care plan. Prior to discharge all questions answered. Pt agrees with treatment plan and understands strict return precautions. Pt is instructed to follow up with primary care provider within 24-48 hours. Precautionary instructions provided including instructions to return to the ER if not imp roving or for any worsening or changing symptoms or concerns. Departure Diagnosis: Primary Impression: Pneumonia Condition: Stable RODRICK العراقي PA-C Dec 18, 2018 11:27
[2018-12-18 13:23] VITALS: BP 161/70; PULSE 61; RESP 18
== END 2018-12-18 13:24 | disposition home or self-care (01) ==
LOC: FTE 10:59
DX: J18.9 Pneumonia, unspecified organism (principal); I11.0 Hypertensive heart disease with heart failure; I50.9 Heart failure, unspecified
CPT/HCPCS: 71045; 80048; 84484; 85025; 93005

== ENCOUNTER 2019-01-17 13:28 | Inpatient (IN) | payer MEDICARE, OTHER ==
[~2019-01-17] VITALS: Ht 152.4 cm; Wt 75.8 kg
[~2019-01-17 13:28] MED LIST changes: +LAS20 PO; +POLY17PO6 PO
[2019-01-17] MEDS ORDERED: NITROGLYCERIN 2% 1 GM OINT PKT TD STA (15:32)
[2019-01-17] MEDS ORDERED: ASPIRIN 81 MG TAB PO STA (15:32)
[2019-01-17] MEDS ORDERED: FUROSEMIDE 40 MG INJ IV STA (15:32)
[2019-01-17] MEDS ORDERED: NITROGLYCERIN (SL) 0.4 MG TAB SL PRN (16:00)
[2019-01-17] MEDS ORDERED: ONDANSETRON 4 MG INJ IV PRN ×2 (17:00→17:30)
[2019-01-17] MEDS ORDERED: ACETAMINOPHEN 325 MG TAB PO PRN ×2 (17:00→17:30)
[2019-01-17] MEDS ORDERED: BISACODYL (EC) 5 MG TAB PO PRN (17:30)
[2019-01-17] MEDS ORDERED: NACL 0.9% 3 ML SYG IV SCH (17:30)
[2019-01-17] MEDS ORDERED: hydrALAzine 20 MG INJ IV PRN (17:30)
[2019-01-17] MEDS ORDERED: HYDROCODONE/APAP (5/325) TAB PO PRN (17:30)
[2019-01-17] MEDS ORDERED: MAGNESIUM HYDROXIDE 30ML CUP PO PRN (17:30)
[2019-01-17] MEDS ORDERED: ALBUTEROL/IPRATROPIUM (NEB) 3 ML AMP HHN PRN (17:30)
[2019-01-17] MEDS ORDERED: PIPER-TAZO 3.375 GM IV (PMX) 100 ML IVPB SCH (18:00)
[2019-01-17] MEDS: ALBUTEROL/IPRATROPIUM (NEB) 3 ML AMP HHN SCH (20:00)
[2019-01-17] MEDS ORDERED: FERROUS SULFATE (EC) 325 MG TAB PO SCH (21:00)
[2019-01-17] MEDS ORDERED: ATORVASTATIN 20 MG TAB PO SCH (21:00)
[2019-01-17] MEDS ORDERED: PANTOPRAZOLE (EC) 40 MG TAB PO SCH (21:00)
[2019-01-17 22:35] VITALS: Ht 152.4 cm; Wt 75.8 kg
[2019-01-17 23:49] VITALS: BP 147/71; PULSE 69; RESP 18
[2019-01-17 23:50] VITALS: BP 159/76; PULSE 82; RESP 17
[2019-01-17] MEDS: PIPER-TAZO 3.375 GM IV (PMX) 100 ML IVPB SCH (23:52)
[2019-01-17] MEDS: FERROUS SULFATE (EC) 325 MG TAB PO SCH (23:52)
[2019-01-17] MEDS: ATORVASTATIN 20 MG TAB PO SCH (23:52)
[2019-01-18 03:49] VITALS: BP 141/71; PULSE 81; RESP 18
[2019-01-18] MEDS: PIPER-TAZO 3.375 GM IV (PMX) 100 ML IVPB SCH (05:24)
[2019-01-18 07:25] VITALS: BP 137/57; PULSE 61; RESP 17
[2019-01-18] MEDS: ALBUTEROL/IPRATROPIUM (NEB) 3 ML AMP HHN SCH ×3 (08:19→19:29)
[2019-01-18] MEDS: LEVOTHYROXINE 25 MCG TAB PO SCH (08:30)
[2019-01-18] MEDS: FOLIC ACID 1 MG TAB PO SCH (08:31)
[2019-01-18] MEDS: AMLODIPINE 5 MG TAB PO SCH (08:31)
[2019-01-18] MEDS: FERROUS SULFATE (EC) 325 MG TAB PO SCH ×3 (08:31→20:44)
[2019-01-18 11:18] VITALS: BP 144/60; PULSE 60; RESP 17
[2019-01-18] MEDS: FUROSEMIDE 20 MG TAB PO SCH (12:18)
[2019-01-18 14:56] VITALS: BP 146/63; PULSE 65; RESP 17
[2019-01-18 19:27] VITALS: BP 141/62; PULSE 71; RESP 18
[2019-01-18] MEDS: ATORVASTATIN 20 MG TAB PO SCH (20:44)
[2019-01-18] MEDS: PANTOPRAZOLE (EC) 40 MG TAB PO SCH (22:50)
[2019-01-18 23:26] VITALS: BP 145/59; PULSE 71; RESP 18
[2019-01-19 04:00] VITALS: BP 141/61; PULSE 75; RESP 19
[2019-01-19] MEDS: LEVOTHYROXINE 25 MCG TAB PO SCH (06:04)
[2019-01-19] MEDS: PANTOPRAZOLE (EC) 40 MG TAB PO SCH ×2 (06:04→17:08)
[2019-01-19 07:20] VITALS: BP 145/64; PULSE 67; RESP 17
[2019-01-19] MEDS: FOLIC ACID 1 MG TAB PO SCH (08:11)
[2019-01-19] MEDS: FUROSEMIDE 20 MG TAB PO SCH (08:12)
[2019-01-19] MEDS: FERROUS SULFATE (EC) 325 MG TAB PO SCH ×3 (08:12→20:57)
[2019-01-19] MEDS: AMLODIPINE 5 MG TAB PO SCH (08:12)
[2019-01-19] MEDS: ALBUTEROL/IPRATROPIUM (NEB) 3 ML AMP HHN SCH ×3 (08:52→19:46)
[2019-01-19 11:35] VITALS: BP 154/67; PULSE 69; RESP 17
[2019-01-19] MEDS: BUDESONIDE (NEB) 0.5MG/2ML AMP HHN SCH ×2 (12:30→19:46)
[2019-01-19] MEDS ORDERED: FUROSEMIDE 20 MG TAB PO ONE (12:30)
[2019-01-19] MEDS ORDERED: FUROSEMIDE 20 MG INJ IV ONE (13:00)
[2019-01-19 15:19] VITALS: BP 136/96; PULSE 71; RESP 17
[2019-01-19 19:30] VITALS: BP 123/57; PULSE 84; RESP 21
[2019-01-19] MEDS: ATORVASTATIN 20 MG TAB PO SCH (20:57)
[2019-01-19 23:51] VITALS: BP 124/56; PULSE 86; RESP 19
[2019-01-20 04:29] VITALS: BP 131/59; PULSE 88; RESP 21
[2019-01-20] MEDS: PANTOPRAZOLE (EC) 40 MG TAB PO SCH (06:09)
[2019-01-20] MEDS: LEVOTHYROXINE 25 MCG TAB PO SCH (06:09)
[2019-01-20 07:27] VITALS: BP 148/63; PULSE 75; RESP 17
[2019-01-20] MEDS: ALBUTEROL/IPRATROPIUM (NEB) 3 ML AMP HHN SCH ×2 (08:13→13:41)
[2019-01-20] MEDS: BUDESONIDE (NEB) 0.5MG/2ML AMP HHN SCH (08:13)
[2019-01-20] MEDS: FOLIC ACID 1 MG TAB PO SCH (08:43)
[2019-01-20] MEDS: FERROUS SULFATE (EC) 325 MG TAB PO SCH ×2 (08:44→12:27)
[2019-01-20] MEDS: AMLODIPINE 5 MG TAB PO SCH (08:44)
[2019-01-20] MEDS ORDERED: FUROSEMIDE 20 MG TAB PO SCH (09:00)
[2019-01-20 11:31] VITALS: BP 157/67; PULSE 77; RESP 17
[2019-01-20 15:31] VITALS: BP 163/69; PULSE 74; RESP 17
[2019-01-20] MEDS ORDERED: HARD FAT/PHENYLEPHRINE SUPP PR PRN (16:00)
[2019-01-21] MEDS ORDERED: POLYETHYLENE GLYCOL 17 GM PACKET PO SCH (09:00)
== END 2019-01-20 19:52 | disposition home or self-care (01) | DRG 291 ==
LOC: E/R 13:28 → TEL 16:58 → OBSVTOIN 17:31
PROVIDERS: ADMIT Internal Medicine; ATTEND Internal Medicine
DX: I13.0 Hypertensive heart and chronic kidney disease with heart failure and stage 1 through stage 4 chronic kidney disease, or unspecified chronic kidney disease (principal); I50.33 Acute on chronic diastolic (congestive) heart failure; N17.9 Acute kidney failure, unspecified; N18.9 Chronic kidney disease, unspecified; E78.5 Hyperlipidemia, unspecified; I48.0 Paroxysmal atrial fibrillation; M06.9 Rheumatoid arthritis, unspecified; E03.9 Hypothyroidism, unspecified; E11.22 Type 2 diabetes mellitus with diabetic chronic kidney disease; K64.8 Other hemorrhoids; D50.0 Iron deficiency anemia secondary to blood loss (chronic)
CPT/HCPCS: 36415; 71045; 71250; 80048; 80053; 80061; 82270; 82550; 82553; 82728; 83036; 83540; 83735; 83880; 84100; 84443; 84484; 85025; 86850; 86900; 86901; 93005; 93970; 94640; 94664; 96374; 99217; G0378; J1940; J2543